=== PATIENT | female | born 1985 | race Caucasian/White ===

== ENCOUNTER 2016-09-03 19:22 | Emergency (ER) | payer MEDICAID ==
[2016-09-03] MEDS ORDERED: KETOROLAC 60 MG/2 ML VIAL IM STA (22:22)
[2016-09-03] MEDS ORDERED: KETOROLAC 60 MG/2 ML VIAL ONE (22:33)
== END 2016-09-04 00:30 | disposition left against medical advice (07) ==
DX: R10.2 Pelvic and perineal pain (principal); E28.2 Polycystic ovarian syndrome; J45.909 Unspecified asthma, uncomplicated; K21.9 Gastro-esophageal reflux disease without esophagitis; Z87.11 Personal history of peptic ulcer disease; F17.200 Nicotine dependence, unspecified, uncomplicated

== ENCOUNTER 2016-10-10 14:50 | Emergency (ER) | payer MEDICAID ==
[2016-10-10 16:53] LABS: BILIRUBIN,URINE NEGATIVE (NEGATIVE)
[2016-10-10 16:56] LABS: HCG UR QUAL NEGATIVE; UA CHARGE (STRIP ONLY) YES; UR CULTURE IF IND NOT INDICATED
--- NOTE | 2016-10-10 17:29 | ED Physician Documentation ---
PD HPI ABD PAIN - Stated complaint Stated Complaint: STOMACH PX - Chief complaint Chief Complaint: Abd Pain - History obtained from History obtained from: Patient - History of Present Illness Timing - onset: How many days ago (5 days of upper abd pain similar to prior gastritis. Has been taking prilosec snf. Resumed sucralfate couple days ago. Having pain with eating and has had some vomiting but no blood.) Timing - duration: Days (5) Timing - details: Gradual onset, Still present (worsening) Quality: Aching, Sharp, Pain Location: Epigastric Radiation: No: Chest, Left flank, Right flank Improved by: No: Eating, Meds Worsened by: Eating Associated symptoms: Fever, Nausea, Vomiting, Diarrhea (loose stools but more chronic issue with question of colitis; pt reportedly getting eval again by GI for possible scope.) Similar symptoms before: Diagnosis (gastritis, IBS, colitis) Review of Systems Constitutional: reports: Fever (subjectively for 5 days). denies: Chills Nose: denies: Rhinorrhea / runny nose, Congestion Throat: denies: Sore throat Cardiac: denies: Chest pain / pressure, Palpitations Respiratory: denies: Dyspnea, Cough, Wheezing GI: reports: Abdominal Pain (upper abd), Nausea, Vomiting, Diarrhea. denies: Constipation, Hematemesis, Bloody / black stool : denies: Dysuria, Frequency Skin: denies: Rash, Lesions Musculoskeletal: denies: Neck pain, Back pain Neurologic: reports: Generalized weakness, Near syncope (she says she felt lightheaded getting up today). 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, Other : None HEENT: None Psych: Depression Musculoskeletal: None Derm: Other - Past Surgical History Past Surgical History: Yes General: Cholecystectomy HEENT: Tonsil/Adenoidectomy - Present Medications Home Medications: Ambulatory Orders Medication Instructions Recorded Confirmed Buprenorphine HCl/Naloxone HCl 1 film TOP DAILY 03/24/15 09/03/16 [Suboxone 2 mg-0.5 mg Sl Film] Escitalopram Oxalate [Lexapro] 20 mg PO DAILY 11/23/15 09/03/16 Promethazine [Phenergan] 25 - 50 mg PO Q6H PRN #15 tab 03/20/16 09/03/16 Ondansetron [Ondansetron Odt] 4 mg PO DAILY 09/03/16 09/03/16 Dicyclomine [Bentyl] 20 mg PO QID PRN #20 capsule 10/10/16 Loperamide [Imodium] 2 mg PO QID PRN #20 capsule 10/10/16 Ondansetron Odt [Zofran] 4 mg TL Q6H PRN #15 tablet 10/10/16 Pantoprazole [Protonix] 40 mg PO DAILY #30 tablet 10/10/16 Sucralfate [Carafate] 1 gm PO QID 10/11/16 10/11/16 - Allergies Allergies/Adverse Reactions: Allergies Allergy/AdvReac Type Severity Reaction Status Date / Time morphine AdvReac Emesis Verified 10/11/16 07:27 Sulfa (Sulfonamide AdvReac Respiratory Verified 10/11/16 07:27 Antibiotics) - Social History Does the pt smoke?: Yes Smoking Status: Current every day smoker Does the pt drink ETOH?: Yes Does the pt have substance abuse?: Yes - Immunizations Immunizations are current?: Yes - POLST Patient has POLST: No PD ED PE NORMAL - Vitals Vital signs reviewed: Yes - General General: Alert and oriented X 3, Well developed/nourished, Other (seems uncomfortable. Not shakiness.) - HEENT HEENT: PERRL (nonicteric), Ears normal, Pharynx benign - Neck Neck: Supple, no meningeal sign, No adenopathy - Cardiac Cardiac: RRR (tachycardic), No murmur - Respiratory Respiratory: Clear bilaterally - Abdomen Abdomen: Normal bowel sounds, Soft, Non distended, No organomegaly, Other ( epigastric tender with some loca guarding, mild percussion but no rebound tenderness. ) - Female Female : Deferred - Rectal Rectal: Deferred - Back Back: No CVA TTP - Derm Derm: Normal color, Warm and dry - Extremities Extremities: No deformity, No tenderness to palpate, Normal ROM s pain, No edema , No calf tenderness / cord - Neuro Neuro: Alert and oriented X 3, No motor deficit, Normal speech - Psych Psych: Normal mood, Normal affect Results - Vitals Vitals: Vital Signs - 24 hr 05/26/17 05/26/17 05/26/17 15:09 18:33 19:27 Temperature 36.7 C 36.8 C Heart Rate 106 H 88 Respiratory 15 18 18 Rate Blood Pressure 120/75 153/80 H O2 Saturation 100 95 10/10/16 10/10/16 20:24 22:08 Temperature 36.5 C Heart Rate 67 61 Respiratory 16 12 Rate Blood Pressure 140/77 H 121/71 O2 Saturation 97 100 Oxygen O2 Source Room air - Labs Labs: Laboratory Tests 10/10/16 10/10/16 10/10/16 16:45 16:45 18:15 WBC 11.6 H RBC 4.95 Hgb 13.2 Hct 40.6 MCV 82.0 MCH 26.7 L MCHC 32.6 RDW 13.5 Plt Count 238 MPV 8.5 Neut # 7.0 H Lymph # 3.7 H [place] # 0.6 Eos # 0.2 Baso # 0.1 Absolute Nucleated RBC 0.00 Nucleated RBCs 0.0 Sodium Potassium Chloride Carbon Dioxide Anion Gap BUN Creatinine Estimated GFR (MDRD) Glucose Calcium Magnesium Total Bilirubin AST ALT Alkaline Phosphatase Total Protein Albumin Globulin Albumin/Globulin Ratio Lipase Urine Color YELLOW Urine Clarity CLEAR Urine pH 6.0 Ur Specific [place] <=1.005 <=1.005 Urine Protein NEGATIVE Urine Glucose (UA) NEGATIVE Urine Ketones NEGATIVE Urine Occult Blood NEGATIVE Urine Nitrite NEGATIVE Urine Bilirubin NEGATIVE Urine Urobilinogen 0.2 (NORMAL) Ur Leukocyte Esterase NEGATIVE Ur Microscopic Review NOT INDICATED Urine Culture Comments NOT INDICATED Urine HCG, Qual NEGATIVE H. pylori IgG Antibody 10/10/16 10/10/16 18:15 18:15 WBC RBC Hgb Hct MCV MCH MCHC RDW Plt Count MPV Neut # Lymph # [place] # Eos # Baso # Absolute Nucleated RBC Nucleated RBCs Sodium 138 Potassium 3.5 Chloride 104 Carbon Dioxide 24 Anion Gap 10.0 BUN 9 Creatinine 0.7 Estimated GFR (MDRD) 98 Glucose 98 Calcium 9.4 Magnesium 1.9 Total Bilirubin 0.3 AST 23 ALT 23 Alkaline Phosphatase 82 Total Protein 7.6 Albumin 4.4 Globulin 3.2 Albumin/Globulin Ratio 1.4 Lipase 23 Urine Color Urine Clarity Urine pH Ur Specific [place] Urine Protein Urine Glucose (UA) Urine Ketones Urine Occult Blood Urine Nitrite Urine Bilirubin Urine Urobilinogen Ur Leukocyte Esterase Ur Microscopic Review Urine Culture Comments Urine HCG, Qual H. pylori IgG Antibody Negative PD MEDICAL DECISION MAKING - ED course Complexity details: reviewed old records (history of similar symptoms, and is on suboxone but says pain meds help as well. Presume she is taking the suboxone as she says, but would not expect pain meds to be as effective. She is interested in GI cocktail and antiemetics, so seems motivated for symptom relief and not just pain meds per se. Certainly issue between treating symptoms at face value and prior question of drug seeking. Will give some meds and certainly focus on GI meds too.), re-evaluated patient (improved symptoms with GI cocktail and less nauseated, able to take PO. IV infiniltrated after part of liter but she is feeling better. ), considered differential, d/w patient Departure - Departure Disposition: 01 Home, Self Care Clinical Impression: Epigastric abdominal pain, Gastritis, Vomiting Condition: Stable Record reviewed to determine appropriate education?: Yes Instructions: ED PUD Follow-Up: Genaro Meza MD [Primary Care Provider] - Prescriptions: Dicyclomine [Bentyl] 20 mg PO QID PRN #20 capsule PRN Reason: Spasms Loperamide [Imodium] 2 mg PO QID PRN #20 capsule PRN Reason: Diarrhea Pantoprazole [Protonix] 40 mg PO DAILY #30 tablet Ondansetron Odt [Zofran] 4 mg TL Q6H PRN #15 tablet PRN Reason: Nausea / Vomiting Comments: Small frequent fluids and bland food initially. Stop the Prilosec and change to Pantoprazole to see if works better now. Continue the Sucralfate 4 times daily for a week. Other usual medications that you take, continue. Add Imodium for diarrhea as needed and can add Dicyclomine for cramps as needed. Follow up PMD next week as planned. Discharge Date/Time: 10/10/16 22:08
[2016-10-10] MEDS ORDERED: ONDANSETRON 4 MG/2 ML VIAL IVP STA (17:56)
[2016-10-10] MEDS ORDERED: HYDROmorphone 1 MG/ML SYRINGE IVP STA ×2 (17:56→19:14)
[2016-10-10] MEDS ORDERED: FAMOTIDINE 20 MG/50 ML 50 ML IV ONE ×2 (17:56→18:04)
[2016-10-10] MEDS ORDERED: SODIUM CHLORIDE 0.9% 1,000 ML IV ONE (17:56)
[2016-10-10] MEDS ORDERED: LIDOCAINE VISCOUS 2% 15 ML UDC MM STA (17:58)
[2016-10-10] MEDS ORDERED: MAG HYDROX/AL HYDROX/SIMETH 30 ML UDC PO STA (17:58)
[2016-10-10] MEDS ORDERED: LIDOCAINE VISCOUS 2% 15 ML UDC MM ONE (18:03)
[2016-10-10] MEDS ORDERED: MAG HYDROX/AL HYDROX/SIMETH 30 ML UDC ONE (18:03)
[2016-10-10] MEDS ORDERED: HYDROmorphone 1 MG/ML SYRINGE ONE ×3 (18:04→21:12)
[2016-10-10] MEDS ORDERED: ONDANSETRON 4 MG/2 ML VIAL ONE (18:04)
[2016-10-10 18:23] LABS: BASOPHILS # (AUTO) 0.1 10^3/uL (0.0-0.1); BASOPHILS % (AUTO) 0.8 %; EOSINOPHILS # (AUTO) 0.2 10^3/uL (0.0-0.7); EOSINOPHILS % (AUTO) 1.4 %; HCT - HEMATOCRIT 40.6 % (37.0-47.0); HGB - HEMOGLOBIN 13.2 g/dL (12.0-16.0); LYMPHOCYTES # (AUTO) 3.7 10^3/uL (1.5-3.5); LYMPHOCYTES % (AUTO) 32.2 %; MEAN CORPUSCULAR HEMOGLOBIN 26.7 pg (27.0-31.0); MEAN CORPUSCULAR HGB CONC 32.6 g/dL (32.0-36.0); MEAN PLATELET VOLUME 8.5 fL (7.9-10.8); MONOCYTES # (AUTO) 0.6 10^3/uL (0.0-1.0); MONOCYTES % (AUTO) 5.2 %; NEUTROPHILS % (AUTO) 60.4 %; RED BLOOD COUNT 4.95 10^6/uL (4.20-5.40); RED CELL DISTRIBUTION WIDTH 13.5 % (12.0-15.0); UNCORRECTED WHITE BLOOD COUNT 11.6 x10^3/uL; WHITE BLOOD COUNT 11.6 x10^3/uL (4.8-10.8)
[2016-10-10 18:37] LABS: ALBUMIN/GLOBULIN RATIO 1.4 (1.0-2.2); BILIRUBIN,TOTAL 0.3 mg/dL (0.2-1.0); CALCIUM 9.4 mg/dL (8.5-10.3); CREATININE 0.7 mg/dL (0.4-1.0); MAGNESIUM 1.9 mg/dL (1.7-2.8); POTASSIUM 3.5 mmol/L (3.5-5.0); TOTAL PROTEIN 7.6 g/dL (6.7-8.2)
[2016-10-10 18:43] LABS: H. PYLORI IGG ANTIBODY Negative (Negative); HPYLORI NEG QC Negative (Negative); HPYLORI POS QC POSITIVE (Positive)
[2016-10-10] MEDS ORDERED: PROMETHAZINE INJ 12.5 MG in SODIUM CHLORIDE 0.9% 50 ML IV STA (20:00)
[2016-10-10] MEDS ORDERED: PROMETHAZINE 25 MG/1 ML VIAL ONE (20:08)
[2016-10-10] MEDS ORDERED: PANTOPRAZOLE 40 MG TABLET PO STA (21:06)
[2016-10-10] MEDS ORDERED: HYDROmorphone 1 MG/ML SYRINGE IM STA (21:06)
[2016-10-10] MEDS ORDERED: PANTOPRAZOLE 40 MG TABLET ONE (21:12)
[2016-10-10 22:11] VITALS: BP 121/71
== END 2016-10-10 22:08 | disposition home or self-care (01) ==
LOC: ED 14:50
DX: K29.70 Gastritis, unspecified, without bleeding (principal); K21.9 Gastro-esophageal reflux disease without esophagitis; F32.9 Major depressive disorder, single episode, unspecified; Z88.2 Allergy status to sulfonamides; Z88.5 Allergy status to narcotic agent; F17.200 Nicotine dependence, unspecified, uncomplicated
CPT/HCPCS: 36415; 80053; 81003; 81025; 83690; 83735; 85025; 87339; 96365; 96367; 96372; 96375; 96376; 99284; A9270; J1170; 81001; 87086

== ENCOUNTER 2016-10-11 07:18 | Inpatient (IN) | payer MEDICAID ==
[2016-10-11] MEDS ORDERED: HYDROmorphone 1 MG/ML SYRINGE IVP STA ×4 (08:19→16:59)
[2016-10-11] MEDS ORDERED: ONDANSETRON 4 MG/2 ML VIAL IVP STA (08:19)
[2016-10-11] MEDS ORDERED: HYDROmorphone 1 MG/ML SYRINGE ONE ×5 (08:23→17:12)
[2016-10-11] MEDS ORDERED: ONDANSETRON 4 MG/2 ML VIAL ONE (08:23)
[2016-10-11] MEDS ORDERED: PROMETHAZINE INJ 25 MG in SODIUM CHLORIDE 0.9% 50 ML IV STA ×2 (08:56→13:07)
[2016-10-11] MEDS ORDERED: LORazepam 2 MG/ML SYRINGE IVP STA (08:57)
[2016-10-11] MEDS ORDERED: SODIUM CHLORIDE 0.9% 1,000 ML IV ONE ×3 (08:57→13:11)
[2016-10-11] MEDS ORDERED: PROMETHAZINE 25 MG/1 ML VIAL ONE ×2 (09:01→13:11)
[2016-10-11] MEDS ORDERED: LORazepam 2 MG/ML SYRINGE ONE (09:02)
[2016-10-11 09:21] LABS: BILIRUBIN,URINE NEGATIVE (NEGATIVE)
[2016-10-11 09:22] LABS: HCG UR QUAL NEGATIVE; UA CHARGE (STRIP ONLY) YES; UR CULTURE IF IND NOT INDICATED
[2016-10-11] MEDS ORDERED: SUCRALFATE 1 GM/10 ML UDC PO STA (10:35)
[2016-10-11] MEDS ORDERED: LIDOCAINE VISCOUS 2% 15 ML UDC MM STA (10:36)
[2016-10-11] MEDS ORDERED: MAG HYDROX/AL HYDROX/SIMETH 30 ML UDC PO STA (10:36)
[2016-10-11] MEDS ORDERED: LIDOCAINE VISCOUS 2% 15 ML UDC MM ONE (10:50)
[2016-10-11] MEDS ORDERED: MAG HYDROX/AL HYDROX/SIMETH 30 ML UDC ONE (10:50)
[2016-10-11] MEDS ORDERED: SUCRALFATE 1 GM/10 ML UDC ONE (10:50)
--- NOTE | 2016-10-11 13:07 | ED Physician Documentation ---
PD HPI ABD PAIN - Stated complaint Stated Complaint: NAUSEA,VOMITING,DIARRHEA - Chief complaint Chief Complaint: Abd Pain - History obtained from History obtained from: Patient - History of Present Illness Timing - onset: How many days ago (4) Timing - duration: Days (4) Timing - details: Gradual onset, Still present Quality: Cramping, Sharp, Pain Location: All over / everywhere, Epigastric Improved by: Vomiting Worsened by: Position, Palpation Associated symptoms: Nausea, Vomiting, Diarrhea, Loss of appetite Similar symptoms before: Diagnosis (IBS, ulcerative colitis, gallbladder disease ) Recently seen: Emergency Dept (Seen and treated here last night.) - Additional information Additional information: 30 y/o female with a history of intermittent abdominal pain and vomiting has has prior similar episodes and over the past 4 days she has developed nausea, billious vomiting and epigastric and suprapubic pain. She was in the ED yesterday getting fluid, pain medication and antiemetic and she did respond to a GI cocktail and improved and was able to go home and sleep. She awoke this morning with nausea vomiting and abdominal pain. Review of Systems Constitutional: reports: Fatigue, Sweats. denies: Fever Eyes: denies: Decreased vision Ears: denies: Ear pain Nose: denies: Congestion Throat: denies: Sore throat Cardiac: denies: Chest pain / pressure, Palpitations Respiratory: denies: Dyspnea, Cough GI: reports: Abdominal Pain, Nausea, Vomiting, Diarrhea : denies: Dysuria, Frequency Skin: denies: Rash Musculoskeletal: denies: Neck pain, Back pain Neurologic: reports: Generalized weakness. 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, Other : None HEENT: None Psych: Depression Musculoskeletal: None Derm: Other - Past Surgical History Past Surgical History: Yes General: Cholecystectomy HEENT: Tonsil/Adenoidectomy - Present Medications Home Medications: Ambulatory Orders Medication Instructions Recorded Confirmed Buprenorphine HCl/Naloxone HCl 1 film TOP DAILY 03/24/15 10/11/16 [Suboxone 2 mg-0.5 mg Sl Film] Escitalopram Oxalate [Lexapro] 20 mg PO DAILY 11/23/15 10/11/16 Promethazine [Phenergan] 25 - 50 mg PO Q6H PRN #15 tab 03/20/16 10/11/16 Ondansetron [Ondansetron Odt] 4 mg PO DAILY 09/03/16 10/11/16 Dicyclomine [Bentyl] 20 mg PO QID PRN #20 capsule 10/10/16 10/11/16 Loperamide [Imodium] 2 mg PO QID PRN #20 capsule 10/10/16 10/11/16 Ondansetron Odt [Zofran] 4 mg TL Q6H PRN #15 tablet 10/10/16 10/11/16 Pantoprazole [Protonix] 40 mg PO DAILY #30 tablet 10/10/16 10/11/16 Sucralfate [Carafate] 1 gm PO QID 10/11/16 10/11/16 - Allergies Allergies/Adverse Reactions: Allergies Allergy/AdvReac Type Severity Reaction Status Date / Time morphine AdvReac Emesis Verified 10/11/16 07:27 Sulfa (Sulfonamide AdvReac Respiratory Verified 10/11/16 07:27 Antibiotics) - Social History Does the pt smoke?: Yes Smoking Status: Current every day smoker Does the pt drink ETOH?: Yes Does the pt have substance abuse?: Yes - Immunizations Immunizations are current?: Yes - POLST Patient has POLST: No PD ED PE NORMAL - Vitals Vital signs reviewed: Yes (hypertensive) - General General: Well developed/nourished, Other (diaphoretic patient appears uncomfortable with 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 ) - HEENT HEENT: Atraumatic, PERRL, EOMI, Other (dry mucous membranes ) - Neck Neck: Supple, no meningeal sign, No bony TTP - Cardiac Cardiac: RRR, No murmur - Respiratory Respiratory: No respiratory distress, Clear bilaterally - Abdomen Abdomen: Soft, Other (epigastric tenderness is mild ) - Back Back: No CVA TTP, No spinal TTP - Derm Derm: Normal color, Warm and dry, No rash - Extremities Extremities: No deformity, No edema - Neuro Neuro: Alert and oriented X 3, No motor deficit, No sensory deficit, Normal speech - Psych Psych: Normal mood, Normal affect Results - Vitals Vitals: Vital Signs - 24 hr 10/11/16 10/11/16 10/11/16 07:22 08:47 10:12 Temperature 36.7 C 35.3 C L Heart Rate 89 81 82 Respiratory 16 16 16 Rate Blood Pressure 140/91 H 154/99 H 148/83 H O2 Saturation 97 100 100 10/11/16 10/11/16 10/11/16 12:02 13:31 14:03 Temperature 36.9 C Heart Rate 79 72 82 Respiratory 18 18 16 Rate Blood Pressure 151/86 H 129/77 144/82 H O2 Saturation 99 100 100 10/11/16 16:06 Temperature Heart Rate 71 Respiratory 71 H Rate Blood Pressure 146/61 H O2 Saturation 100 Oxygen O2 Source Room air - Labs Labs: Microbiology 10/11/16 08:35 Campylobacter Antigen Assay - Final Stool 10/11/16 08:35 Clostridium difficile (PCR) - Final Stool Laboratory Tests 10/11/16 10/11/16 09:05 15:26 Sodium 138 Potassium 3.9 Chloride 106 Carbon Dioxide 21 Anion Gap 11.0 BUN 9 Creatinine 0.5 Estimated GFR (MDRD) 145 Glucose 130 H Calcium 8.9 Total Bilirubin 0.4 AST 26 ALT 26 Alkaline Phosphatase 81 Total Protein 7.8 Albumin 4.3 Globulin 3.5 Albumin/Globulin Ratio 1.2 Lipase 22 Urine Color YELLOW Urine Clarity CLEAR Urine pH 7.0 Ur Specific [place] 1.015 Urine Protein NEGATIVE Urine Glucose (UA) NEGATIVE Urine Ketones NEGATIVE Urine Occult Blood NEGATIVE Urine Nitrite NEGATIVE Urine Bilirubin NEGATIVE Urine Urobilinogen 0.2 (NORMAL) Ur Leukocyte Esterase NEGATIVE Ur Microscopic Review NOT INDICATED Urine Culture Comments NOT INDICATED Urine HCG, Qual NEGATIVE Procedures - IVC sono (time) 0750 Bedside IVC sono: IVC measures (cm) (0.82), IVC collapsed c insp (cm) (complete) , Significant dehydration PD MEDICAL DECISION MAKING - ED course Complexity details: reviewed old records, reviewed results, re-evaluated patient , considered differential, d/w patient ED course: 30 y/o female with billious vomiting and epigastric pain is given doses of dialudid and zofran and phenrgan without resolution of her symptoms. She is significantly dehydrated and she is administered 2 liters of saline as well. Despite multiple medications and time the patient continues to have billious vomiting and the hospital team is consulted and graciously agrees to care for the patient in the hospital and have made recommendations about treatment to include anti-inflammatory steroid use. Departure - Departure Disposition: 66 [facility] DC/Xfer Clinical Impression: Intractable vomiting with nausea Qualifiers: Vomiting type: cyclical vomiting Qualified Code(s): G43.A1 - Cyclical vomiting , intractable
[2016-10-11] MEDS ORDERED: SODIUM CHLORIDE 0.9% 50 ML IV ONE (13:11)
[2016-10-11 15:48] LABS: ALBUMIN/GLOBULIN RATIO 1.2 (1.0-2.2); BILIRUBIN,TOTAL 0.4 mg/dL (0.2-1.0); CALCIUM 8.9 mg/dL (8.5-10.3); CREATININE 0.5 mg/dL (0.4-1.0); POTASSIUM 3.9 mmol/L (3.5-5.0); TOTAL PROTEIN 7.8 g/dL (6.7-8.2)
[2016-10-11] MEDS ORDERED: methylPREDNISolone SUCCINATE 125 MG/2 ML VIAL IVP STA (16:32)
[2016-10-11] MEDS ORDERED: methylPREDNISolone SUCCINATE 125 MG/2 ML VIAL IVP ONE (16:45)
[2016-10-11] MEDS ORDERED: SODIUM CHLORIDE FLUSH 0.9% 10 ML SYRINGE IVP PRN (16:56)
[2016-10-11] MEDS ORDERED: KETOROLAC 30 MG/ML VIAL IVP SCH (17:11)
[2016-10-11 17:39] LABS: MAGNESIUM 1.6 mg/dL (1.7-2.8)
[2016-10-11] MEDS: GABAPENTIN 100 MG CAPSULE PO SCH ×2 (17:50→21:17)
[2016-10-11] MEDS: SUCRALFATE 1 GM/10 ML UDC PO SCH ×2 (17:50→21:18)
[2016-10-11] MEDS: SODIUM CHLORIDE 0.9% 1,000 ML IV SCH (17:56)
[2016-10-11] MEDS ORDERED: MAGNESIUM SULFATE 2 GRAM 50 ML IV SCH (18:11)
[2016-10-11] MEDS ORDERED: CYANOCOBALAMIN 1,000 MCG/ML VIAL IM SCH (18:12)
[2016-10-11] MEDS: INSULIN REGULAR HUMAN 100 UNIT/1 ML 10 ML MDV SUBQ SCH (18:18)
[2016-10-11] MEDS ORDERED: ALPRAZolam 0.25 MG TABLET PO PRN (18:28)
[2016-10-11] MEDS ORDERED: PROMETHAZINE INJ 25 MG in SODIUM CHLORIDE 0.9% 50 ML IV SCH (18:31)
[2016-10-11 18:41] LABS: HCT - HEMATOCRIT 45.7 % (37.0-47.0); HGB - HEMOGLOBIN 14.8 g/dL (12.0-16.0); MEAN CORPUSCULAR HEMOGLOBIN 26.9 pg (27.0-31.0); MEAN CORPUSCULAR VOLUME 83.1 fL (81.0-99.0); RED BLOOD COUNT 5.51 10^6/uL (4.20-5.40); WHITE BLOOD COUNT 14.8 x10^3/uL (4.8-10.8)
[2016-10-11 18:42] LABS: BASOPHILS % (AUTO) 0.3 %; EOSINOPHILS % (AUTO) 0.1 %; LYMPHOCYTES % (AUTO) 6.9 %; MEAN CORPUSCULAR HGB CONC 32.4 g/dL (32.0-36.0); MEAN PLATELET VOLUME 8.9 fL (7.9-10.8); MONOCYTES % (AUTO) 1.9 %; NEUTROPHILS % (AUTO) 90.8 %
[2016-10-11 18:44] LABS: BAND NEUTROPHILS % (MANUAL) 0 %
[2016-10-11] MEDS ORDERED: ALPRAZolam 0.25 MG TABLET PO STA (18:44)
[2016-10-11 19:03] LABS: HEMOGLOBIN A1C 0.66 g/dL
[2016-10-11] MEDS: CHOLECALCIFEROL 5,000 UNIT CAPSULE PO SCH (19:20)
[2016-10-11] MEDS: traMADol 50 MG TABLET PO PRN (19:20)
--- NOTE | 2016-10-11 19:32 | Ultrasound Preliminary Report ---
Exam: US Abdomen Complete IMPRESSION: 1. Diffusely echogenic liver, suggestive of hepatic steatosis. 2. Status post cholecystectomy. [facility] SITE ID: [id number]
--- NOTE | 2016-10-11 19:35 | Ultrasound Report ---
EXAM: ABDOMEN ULTRASOUND EXAM DATE: 10/11/2016 06:19 PM. CLINICAL HISTORY: Abdominal pain, nausea, vomiting, diarrhea COMPARISON: CT 09/23/2015. TECHNIQUE: Real-time scanning was performed with static images obtained. FINDINGS: Liver: Diffusely increased in echogenicity, suggestive of hepatic steatosis. 17 cm. Main portal vein flow: Hepatopetal. Gallbladder: Status post cholecystectomy Biliary System: Common bile duct measures 4 mm. No intrahepatic or extrahepatic ductal dilatation. Pancreas: Not seen due to bowel gas Kidneys: Right: 11.8 cm longitudinally. Normal. No contour-deforming mass, stones, or hydronephrosis. Left: 11.2 cm longitudinally. Normal. No contour-deforming mass, stones, or hydronephrosis. Spleen: 11.0 x 3.4 x 10.6 cm. Normal in size and echotexture. Aorta and Inferior Vena Cava: Unremarkable. IMPRESSION: 1. Diffusely echogenic liver, suggestive of hepatic steatosis. 2. Status post cholecystectomy. [facility] Referring Provider Line: [phone] SITE ID: [id number]
[2016-10-11 19:38] LABS: LYMPHOCYTES % (MANUAL) 7 %; NEUTROPHILS % (MANUAL) 91 %; NP AUTO DIFFERENTIAL? YES; NP MAN DIFFERENTIAL? NO; PLATELET ESTIMATE, MANUAL NORMAL (130-450,000) (NORMAL); PLATELET MORPHOLOGY NORMAL APPEARANCE (NORMAL); TOTAL CELLS COUNTED 100
[2016-10-11] MEDS ORDERED: THIAMINE 100 MG/1 ML 2 ML MDV ONE (19:38)
--- NOTE | 2016-10-11 20:01 | HISTORY & PHYSICAL EXAMINATION ---
DATE OF ADMISSION: 10/11/2016 CHIEF COMPLAINT: Intractable vomiting and abdominal pain and spasm. PRIMARY CARE PROVIDER: Cally Bentley, GILMAR. PRIMARY CARE PROVIDER: Genaro Meza PCP. HISTORY OF PRESENT ILLNESS: The patient is a 30-year-old obese female who presented to the ED today with a complaint of cyclical vomiting x1 week. She has had similar symptoms before in the past. She states that these were gradual onset and have been ongoing ever since. She states that she normally takes Suboxone to help with narcotic withdrawal along with Carafate and Bentyl, has not been able to pick this medication up so the vomiting has continued. She does use marijuana usually in food rather than smoking it, which she states does help the pain. She is an everyday smoker; however, does not drink. She says the nicotine in the cigarettes does help with her history of ulcerative colitis. Significant medical history includes asthma, migraine headaches, PCOS, GERD, ulcers, ovarian cysts and depression. The patient was evaluated in the ED today, she showed positive for opiates as well as cannabinoids. She admits to having both nausea and vomiting and some mild diarrhea, so a C.dif test was done in the ER, which was also negative. The patient was found to also have an elevated CRP with significant inflammation. She was given a dose of Solu-Medrol 125 mg while in the ER. She also received 5 mg of IV Dilaudid which she states was barely helping her pain. At admission, she states her pain was still 9 out of 10 and she was still experiencing significant vomiting. She had been given Phenergan 25 mg IV while in the ER. The patient will be admitted for intractable nausea, vomiting and pain. Additionally, a magnesium level was found to be 1.6. She was given 2 grams of IV magnesium sulfate. ALLERGIES 1. MORPHINE. 2. SULFA. HOME MEDICATIONS 1. Lexapro 20 mg. 2. Suboxone 2 mg film. 3. Carafate 1 gram p.o. q.i.d. PAST MEDICAL HISTORY: Includes nicotine abuse, cannabinoid usage, asthma, headache, migraine, PCOS, GERD, ulcerative colitis, depression, irregular menstrual cycles. PAST SURGICAL HISTORY: Cholecystectomy, tonsillectomy, adenoidectomy. PAST FAMILY HISTORY: The patient states that both her parents are obese. She does have a mother with metabolic syndrome, also chronic pain issues and diabetes. She states that one of her other parents also has a history of fibromyalgia. PAST SOCIAL HISTORY: The patient is an every day cigarette smoker. She does not drink alcohol. She does use substances, marijuana, which she states that she uses food products, not smoking. REVIEW OF SYSTEMS: The 10 systems have been reviewed and is negative with the exception as discussed in HPI prior. She is negative for chest pain or shortness of breath. She is positive for fatigue, weakness, vomiting, intractable fever and malaise. She denies hematuria, dysuria and black tarry stools. PHYSICAL EXAMINATION CONSTITUTIONAL: The patient is an alert, obese female in moderate distress. EYES: Pupils equal, round and react to light and accommodation. Conjunctivae and sclerae are nonicteric, not injected. ENT: Nares are patent. No nasal discharge. Oropharynx - no masses, exudates or lesions. Mucous membranes are moist. NECK: Neck was supple. No thyromegaly noted. CARDIOVASCULAR: S1, S2 noted. No gallops, murmurs or rubs. Normal PMI. No JVD. RESPIRATORY: Breath sounds are diminished in the bases, otherwise no retractions , nasal flaring, or increased work of breathing. GASTROINTESTINAL: Abdomen was obese, diffuse tenderness but otherwise no guarding or rebound. GENITOURINARY: No CVA tenderness. No masses palpated. SKIN: Warm and dry, intact, noted significant acne to both cheeks. NEUROLOGICAL: She was alert. Cranial nerves 2-12 grossly intact. Sensory was intact. MUSCULOSKELETAL/EXTREMITIES: The patient has full range of motion with upper and lower extremities. No cyanosis. Pulses are palpable. PSYCHIATRIC: The patient was tearful, otherwise normal affect. No suicidal ideation. HEMATOLOGIC: No active bleeding. The patient was hemodynamically stable. LYMPHATICS: No cervical, axillary, supraclavicular lymphadenopathy is noted. LABORATORY AND DIAGNOSTIC DATA: I personally reviewed all laboratory and diagnostic data in the medical records and the results are as follows. LABORATORY: Sodium 138, potassium 3.9, chloride 106, carbon dioxide 21, BUN 9, creatinine 0.5, glucose 130, magnesium 1.6. C-reactive protein 1.4. TSH 1.26. Urine was positive for opiates and cannabinoids. CBC is pending. DIAGNOSTICS: I personally reviewed the diagnostic data in the medical records and reviewed this with the ER provider. 1. Chest x-ray with no acute process. No infiltrates noted. 2. Ultrasound of the upper abdomen which is pending at this time. ASSESSMENT AND PLAN 1. Acute abdominal pain with intractable vomiting, possible cyclical vomiting syndrome secondary to cannabinoid usage. PLAN: The patient was admitted inpatient with IV fluids, Phenergan and IV and pain management. The patient was also given Zofran while in the ER, which we will continue. The patient states that she uses marijuana on a daily basis and has not had symptoms like this in several weeks. She does take Suboxone and says she has had physical dependence on pain medication in the past. She does have a history of ulcerative colitis which is what the pain medication was prescribed for. We will continue to monitor CBC and CMP, monitor electrolytes and kidney function. 2. Substance abuse, uncomplicated with dependence on THC cannabinoids. PLAN: Continue to provide counseling for cessation of marijuana usage. Gabapentin for marajuana withdrawal 3. Obesity with body mass index greater than 30 with excessive caloric intake. PLAN: Nutrition counseling is recommended and encourage ambulation and exercise. 4. Leukocytosis, acute secondary to Chronic ulcerative colitis with acute gastroparesis and inflammation with elevated CRP PLAN: Cipro and Flagyl IV and Continue on Protonix, Zofran, Bentyl. Continue to monitor white count and pain management with Toradol and Tramadol. 4. Nicotine dependence, cigarettes, uncomplicated. PLAN: To provide nicotine patch. The patient does have nicotine gum, which she would like to use which is okay. We will mortgage loan counselor as far as sensation for smoking. 5. Chronic anxiety disorder with depression. PLAN: To continue Lexapro and monitor mental health behavior. Xanax 0.5 mg PO BID and ativan PRn 6. Gastroesophageal reflux disease. PLAN: To continue Protonix and probiotic. 7. DVT prophylaxis with SCDs and Lovenox. 8. Low serum level of magnesium with other electrolyte imbalances PLAN: replace magnesium with magnesium sulfate IV and repeat levels with morning lab draw. RISK ASSESSMENT/DISPOSITION: The patient is high risk for worsening comorbidities. She will require IV medication with high risk for toxicity, additional diagnostics and possible additional consults. Toe touch to bedside. Time spent with the patient was 50 minutes for education planning and assessment. The patient will require greater than 2 midnights due to high risk for comorbidities and IV medication with toxicity potential. JOB #: [id number] EXT JOB #:[id number] MTDMeme
[2016-10-11] MEDS ORDERED: GABAPENTIN 300 MG CAPSULE PO SCH (21:00)
[2016-10-11] MEDS: MULTIVITAMIN 10 ML, THIAMINE INJ 100 MG, FOLIC ACID INJ 1 MG in SODIUM CHLORIDE 0.9% 1,... IV SCH (21:16)
[2016-10-11] MEDS: SODIUM CHLORIDE FLUSH 0.9% 10 ML SYRINGE IVP SCH (21:18)
[2016-10-11] MEDS: ALPRAZolam 0.25 MG TABLET PO SCH (21:18)
[2016-10-11] MEDS ORDERED: diphenhydrAMINE INJ 50 MG/ML VIAL IVP SCH (22:00)
[2016-10-11] MEDS: DICYCLOMINE 10 MG CAPSULE PO PRN (22:40)
[2016-10-11] MEDS: KETOROLAC 30 MG/ML VIAL IVP PRN (22:40)
[2016-10-12] MEDS: INSULIN REGULAR HUMAN 100 UNIT/1 ML 10 ML MDV SUBQ SCH ×4 (01:00→16:59)
[2016-10-12] MEDS: traMADol 50 MG TABLET PO PRN ×4 (01:05→20:03)
[2016-10-12] MEDS: ONDANSETRON ODT 4 MG TABLET TL PRN (02:27)
[2016-10-12] MEDS: cloNIDine 0.1 MG TABLET PO SCH ×4 (03:02→21:37)
[2016-10-12] MEDS: PROMETHAZINE INJ 12.5 MG in SODIUM CHLORIDE 0.9% 50 ML IV PRN ×3 (04:06→22:45)
[2016-10-12] MEDS: KETOROLAC 30 MG/ML VIAL IVP PRN ×4 (04:57→22:44)
[2016-10-12] MEDS: DICYCLOMINE 10 MG CAPSULE PO PRN ×2 (04:58→17:02)
[2016-10-12] MEDS: SODIUM CHLORIDE 0.9% 1,000 ML IV SCH ×3 (05:38→21:54)
[2016-10-12] MEDS: GABAPENTIN 100 MG CAPSULE PO SCH (05:47)
[2016-10-12] MEDS: SODIUM CHLORIDE FLUSH 0.9% 10 ML SYRINGE IVP SCH ×3 (05:48→22:45)
[2016-10-12] MEDS ORDERED: IOPAMIDOL-300 100 ML VIAL IVP ONE (05:51)
--- NOTE | 2016-10-12 06:36 | CT Preliminary Report ---
Exam: CT Abdomen/Pelvis W/ IMPRESSION: 1. Fatty infiltration of the liver. 2. No acute inflammatory or obstructive process seen in the abdomen or pelvis. [facility] SITE ID: [id number]
--- NOTE | 2016-10-12 06:39 | CT Report ---
EXAM: CT ABDOMEN AND PELVIS EXAM DATE: 10/12/2016 06:00 AM. CLINICAL HISTORY: Abdominal pain and vomiting. COMPARISONS: 09/23/2015. TECHNIQUE: Routine helical CT imaging was performed through the abdomen and pelvis. IV contrast: Malu onic. Enteric contrast: No. Reconstructions: Coronal and sagittal. In accordance with CT protocol optimization, one or more of the following dose reduction techniques w ere utilized for this exam: automated exposure control, adjustment of mA and/or KV based on patient s ize, or use of iterative reconstructive technique. FINDINGS: Lung Bases: Unremarkable. Liver: Fatty infiltration. Gallbladder/Bile Ducts: Status post cholecystectomy. Spleen: Normal. Pancreas: Normal. Adrenal Glands: Normal. Kidneys: Normal. No masses or hydronephrosis. Peritoneal Cavity/Bowel: Colonic diverticula without evidence of diverticulitis. No bowel obstruction seen. No free air or free fluid. No lymphadenopathy. Appendix appears normal. Pelvic Organs: Normal. The bladder and visualized pelvic organs are within normal limits. Vasculature: No aneurysms or other significant abnormality. Bones: No significant abnormality. Other: None. IMPRESSION: 1. Fatty infiltration of the liver. 2. No acute inflammatory or obstructive process seen in the abdomen or pelvis. [facility] Referring Provider Line: [phone] SITE ID: [id number]
--- NOTE | 2016-10-12 07:14 | PROVIDER PROGRESS NOTE ---
Assessment/Plan - Problem List (1) Intractable vomiting with nausea Qualifiers: Vomiting type: cyclical vomiting Qualified Code(s): G43.A1 - Cyclical vomiting, intractable Assessment/Plan: ongoing. patient probably has withdrawal from marajuan but also has history of colonic ulceritive colitis. continue with phenergan, compazine, bentyl and zofran. (2) Leukocytosis, unspecified Qualifiers: Leukocytosis type: other Qualified Code(s): D72.828 - Other elevated white blood cell count Assessment/Plan: ongoing. continue to monitor white blood cells and give cipro and flagyk IV for colonic diverticulosis with possible diverticulitis on presentation. CT of abdomen did not show diverticulitis but with patient history, she states she gets sick when her colitis is acting up. Will continue with steroids for inflammation. CRP is elevated. This could still be more of the cyclic vomiting from the marajuana as well. will continue to give gabapentin for marajuana withdrawal. monitor electrolytes (3) Hypokalemia due to loss of potassium Assessment/Plan: acute . continue to give patient IVF and monitor for emesis. Replace potassium orally and monitor electrolytes with daily blood draw (4) Acute narcotic withdrawal Assessment/Plan: ongoing. severe continue with gabapentin for marijuana withdrawal and IVF and banana bag IV for hydration and supplements. patient was given small dose of Dilaudid 0.5mg IV for additional pain. hold suboxone home medication. continue with Ativan or Valium for spasms and agitation. telemetry monitoring (5) Metabolic syndrome Assessment/Plan: ongoing. patient with narcotic and substance abuse with obesity and PCOS. continues with needs for nutrition consult and management of diet and endocrine disorders. Severe gastritis with antiemetics to continue. reduced calorie diet, low fat, no gluten or dairy. (6) Fat induced hyperlipidemia Assessment/Plan: acute. continue to encourage diet with low fat and low calorie. Patient will need counseling with nutrition prior to discharge if acceptable to patient. omega 3 since patient will not take a statin - Current Meds Current Meds: Current Medications Generic Name Dose Route Start Last Admin Trade Name Freq PRN Reason Stop Dose Admin Alprazolam 0.5 mg 10/11/16 21:00 10/11/16 21:18 Xanax PO 0.5 mg BID KATHIE Administration Cholecalciferol 5,000 unit 10/11/16 19:00 10/11/16 19:20 Vitamin D3 PO 5,000 unit DAILYWM KATHIE Administration Clonidine HCl 0.1 mg 10/12/16 03:00 10/12/16 05:47 Catapres PO Not Given TID KATHIE Dicyclomine HCl 20 mg 10/11/16 17:07 10/12/16 04:58 Bentyl PO 20 mg QID PRN Administration Spasms Gabapentin 100 mg 10/11/16 18:00 10/12/16 05:47 Neurontin PO Not Given TID KATHIE Gabapentin 300 mg 10/11/16 21:00 10/11/16 21:17 Neurontin PO 300 mg QPM KATHIE Administration Sodium Chloride 1,000 mls @ 100 mls/hr 10/11/16 17:00 10/12/16 05:38 Normal Saline 0.9% IV Not Given .Q10H KATHIE Multivitamins 10 ml/ Thiamine 1,011.2 mls @ 100 mls/hr 10/11/16 18:41 10/11/16 21:16 HCl 100 mg/ Folic Acid 1 mg/ IV 100 mls/hr Sodium Chloride DAILY KATHIE Administration Promethazine HCl 12.5 mg/ 50.5 mls @ 100 mls/hr 10/12/16 03:42 10/12/16 04:06 Sodium Chloride IV 100 mls/hr Q6H PRN Administration Nausea / Vomiting Insulin Human Regular 1 - 5 unit 10/11/16 18:00 10/12/16 01:00 Novolin R SUBQ 1 unit Q6HR KATHIE Administration Protocol Ketorolac Tromethamine 30 mg 10/11/16 18:39 10/12/16 04:57 Toradol Inj IVP 10/16/16 18:38 30 mg Q6HR PRN Administration PAIN Ondansetron HCl 4 mg 10/11/16 16:56 10/12/16 02:27 Zofran Odt TL 4 mg Q6HR PRN Administration Nausea / Vomiting Sodium Chloride 10 ml 10/11/16 22:00 10/12/16 05:48 Normal Saline Flush 0.9% IVP Not Given Q8HR KATHIE Sucralfate 1 gm 10/11/16 18:00 10/11/16 21:18 Carafate PO 1 gm QID KATHIE Administration Tramadol HCl 100 mg 10/11/16 18:29 10/12/16 01:05 Ultram PO 100 mg Q4HR PRN Administration PAIN - Lab Result Lab results reviewed: Yes Fish Bone Diagrams: 10/12/16 07:25 10/12/16 07:25 Other Lab Results: Abnormal Lab Results 10/11/16 10/11/16 10/11/16 09:05 15:26 15:26 WBC RBC MCH Neutrophils # (Manual) Lymphocytes # (Manual) Glucose 130 mg/dL H mg/dL (70-100) POC Whole Bld Glucose Estim Average Glucose Magnesium 1.6 mg/dL L mg/dL (1.7-2.8) C-Reactive Protein 1.4 mg/dL H mg/dL (0-1.0) Urine Opiates Screen POSITIVE H (NEGATIVE) U Cannabinoids Screen POSITIVE H (NEGATIVE) 10/11/16 10/11/16 10/11/16 17:58 18:18 18:18 WBC 14.8 x10^3/uL H x10^3/uL (4.8-10.8) RBC 5.51 10^6/uL H 10^6/uL (4.20-5.40) MCH 26.9 pg L pg (27.0-31.0) Neutrophils # (Manual) 13.5 10^3/uL H 10^3/uL (1.5-6.6) Lymphocytes # (Manual) 1.0 10^3/uL L 10^3/uL (1.5-3.5) Glucose POC Whole Bld Glucose 127 mg/dL H mg/dL (70 - 100) Estim Average Glucose 120 H (70-100) Magnesium C-Reactive Protein Urine Opiates Screen U Cannabinoids Screen 10/11/16 10/11/16 10/12/16 20:34 23:38 05:49 WBC RBC MCH Neutrophils # (Manual) Lymphocytes # (Manual) Glucose POC Whole Bld Glucose 142 mg/dL H mg/dL 149 mg/dL H mg/dL 127 mg/dL H mg/dL (70 - 100) (70 - 100) (70 - 100) Estim Average Glucose Magnesium C-Reactive Protein Urine Opiates Screen U Cannabinoids Screen - EKG Results EKG Interpreted Independently: No - Diagnostic Imaging Results Diagnostic Imaging Results: positive: Prelim report reviewed Diagnostic Imaging Results Comments: Ultrasound showed hepatic steatosis with no gallbladder. No biliary duct dilitation. No acute process in the abdomen. CT of Abdomen and Pelvis: impression with no acute process. fatty liver disease - Additional Planning Condition/Complexity: Stable My Orders: My Active Orders 10/11/16 15:26 JUAN SCREEN W REFLEX TITER [REFLAB] Stat VITAMIN B1 (THIAMINE) PLASMA [REFLAB] Stat VITAMIN D, 1,25-DIHYDROXY [REFLAB] Stat 10/11/16 17:07 NPO [DIET] Dicyclomine [Bentyl] 20 mg PO QID PRN 10/11/16 17:19 Blood Glucose POC [RC] 0000,0600,1200,1800 Initiate Hypoglycemia Protocol [RC] .protocol 10/11/16 18:00 Gabapentin [Neurontin] 100 mg PO TID Insulin Regular Human [NovoLIN R] 1 - 5 unit SUBQ Q6HR Sucralfate [Carafate] 1 gm PO QID 10/11/16 18:29 traMADol [Ultram] 100 mg PO Q4HR PRN 10/11/16 18:39 Ketorolac Inj [Toradol Inj] 30 mg IVP Q6HR PRN 10/11/16 18:41 Multivitamin [Infuvite] 10 ml Thiamine Inj [Vitamin B-1 Inj] 100 mg Folic Acid Inj 1 mg Sodium Chloride 0.9% [Normal Saline 0.9%] 1,000 ml IV DAILY 10/11/16 19:00 Cholecalciferol [Vitamin D3] 5,000 unit PO DAILYWM 10/11/16 21:00 Gabapentin [Neurontin] 300 mg PO QPM 10/12/16 05:00 CMP [COMPREHENSIVE METABOLIC PANEL] [CHEM] DAILYLAB LIPID Panel [CHEM] Stat 10/12/16 07:00 methylPREDNISolone SUCCINATE [SOLU-Medrol (40MG VIAL)] 40 mg IVP TID 10/12/16 07:04 CBC - COMP BLD CT W/AUTO DIFF [HEME] Stat 10/12/16 07:06 MAGNESIUM [CHEM] Stat PHOSPHORUS [CHEM] Stat 10/12/16 07:45 LORazepam INJ [Ativan Inj] 1 mg IVP ONCE ONE 10/12/16 09:00 Buprenorphine HCl/Naloxone HCl [Suboxone 2 mg-0.5 mg Sl Film] 2 film TOP DAILY Escitalopram [Lexapro] 20 mg PO DAILY Nicotine 21 mg Patch [Nicoderm] 1 patch TOP DAILY Plan Discussed with:: Patient, Case Management Time Spent: 31-60 minutes Additional Planning Notes: Patient will require at least another 24-48 hours before discharging home. She is high risk for worsening co morbid conditions and will require IV medication with high risk for toxicity and additional diagnostics. Subjective - Subjective Patient Reports: Abdominal Pain, Nausea, Pain Nursing Reports: Pain, Vomitting (patient still asking for high levels of pain medication and is adamant for IV dilaudid.) Objective Vital Signs: Vital Signs - 24 hr 10/11/16 10/11/16 10/12/16 17:40 23:40 00:00 Temperature 37.3 C 37.0 C 36.8 C Heart Rate [ 75 82 Radial] Respiratory 16 16 Rate Blood Pressure 121/84 H 125/69 [Right Brachial artery] O2 Saturation 97 97 Oxygen O2 Source Room air I&O (Last 24 Hrs): Intake and Output Totals x24h 10/10/16 10/11/16 10/12/16 23:59 23:59 23:59 Intake Total 551 1007 Output Total 475 Balance 551 532 General: Oriented x3, Moderate distress HEENT: PERRLA Neck: Supple, No JVD Lymphatic: no adenopathy Neuro: Alert, Oriented Times 3 Cardiovascular: Regular rate, Normal S1, Normal S2, No murmurs Respiratory: No respiratory distress, Breath sounds nml Abdomen: Soft, No masses, Other (obese with tenderness ot right upper quadrant with palpation) Rectal: Stool - Heme NEG Extremities: No clubbing, No cyanosis Skin: No rashes, No breakdown, No significant lesion Comments/Notes: acne obn bilateral cheeks - Results Results: Laboratory Results WBC 14.8 x10^3/uL (4.8-10.8) H 10/11/16 18:18 RBC 5.51 10^6/uL (4.20-5.40) H 10/11/16 18:18 Hgb 14.8 g/dL (12.0-16.0) 10/11/16 18:18 Hct 45.7 % (37.0-47.0) 10/11/16 18:18 MCV 83.1 fL (81.0-99.0) 10/11/16 18:18 MCH 26.9 pg (27.0-31.0) L 10/11/16 18:18 MCHC 32.4 g/dL (32.0-36.0) 10/11/16 18:18 RDW 14.0 % (12.0-15.0) 10/11/16 18:18 Plt Count 261 10^3/uL (130-450) 10/11/16 18:18 MPV 8.9 fL (7.9-10.8) 10/11/16 18:18 Neut # Not Reportable 10/11/16 18:18 Lymph # Not Reportable 10/11/16 18:18 [place] # Not Reportable 10/11/16 18:18 Eos # Not Reportable 10/11/16 18:18 Baso # Not Reportable 10/11/16 18:18 Absolute Nucleated RBC Not Reportable 10/11/16 18:18 Total Counted 100 10/11/16 18:18 Band Neuts % (Manual) 0 % (0-10) 10/11/16 18:18 Neutrophils # (Manual) 13.5 10^3/uL (1.5-6.6) H 10/11/16 18:18 Lymphocytes # (Manual) 1.0 10^3/uL (1.5-3.5) L 10/11/16 18:18 Monocytes # (Manual) 0.3 10^3/uL (0.0-1.0) 10/11/16 18:18 Nucleated RBCs Not Reportable 10/11/16 18:18 Differential Comment MANUAL DIFFERENTIAL 10/11/16 18:18 Platelet Estimate NORMAL (130-450,000) (NORMAL) 10/11/16 18:18 Platelet Morphology NORMAL APPEARANCE (NORMAL) 10/11/16 18:18 RBC Morph Micro Appear NORMAL APPEARANCE (NORMAL) 10/11/16 18:18 Sodium 138 mmol/L (135-145) 10/11/16 15:26 Potassium 3.9 mmol/L (3.5-5.0) 10/11/16 15:26 Chloride 106 mmol/L (101-111) 10/11/16 15:26 Carbon Dioxide 21 mmol/L (21-32) 10/11/16 15:26 Anion Gap 11.0 (6-13) 10/11/16 15:26 BUN 9 mg/dL (6-20) 10/11/16 15:26 Creatinine 0.5 mg/dL (0.4-1.0) 10/11/16 15:26 Estimated GFR (MDRD) 145 (>89) 10/11/16 15:26 Glucose 130 mg/dL (70-100) H 10/11/16 15:26 POC Whole Bld Glucose 127 mg/dL (70 - 100) H 10/12/16 05:49 Glycated Hemoglobin 5.8 % (4.6-6.2) 10/11/16 18:18 Estim Average Glucose 120 (70-100) H 10/11/16 18:18 Calcium 8.9 mg/dL (8.5-10.3) 10/11/16 15:26 Magnesium 1.6 mg/dL (1.7-2.8) L 10/11/16 15:26 Total Bilirubin 0.4 mg/dL (0.2-1.0) 10/11/16 15:26 AST 26 IU/L (10-42) 10/11/16 15:26 ALT 26 IU/L (10-60) 10/11/16 15:26 Alkaline Phosphatase 81 IU/L (42-121) 10/11/16 15:26 C-Reactive Protein 1.4 mg/dL (0-1.0) H 10/11/16 15:26 Total Protein 7.8 g/dL (6.7-8.2) 10/11/16 15:26 Albumin 4.3 g/dL (3.2-5.5) 10/11/16 15:26 Globulin 3.5 g/dL (2.1-4.2) 10/11/16 15:26 Albumin/Globulin Ratio 1.2 (1.0-2.2) 10/11/16 15:26 Amylase 44 U/L (28-100) 10/11/16 15:26 Lipase 22 U/L (22-51) 10/11/16 15:26 Vitamin B12 385 pg/mL (180-914) 10/11/16 15:26 TSH 1.26 uIU/mL (0.34-5.60) 10/11/16 15:26 Cortisol PM Sample 39.9 ug/dL 10/11/16 20:07 Urine Color YELLOW 10/11/16 09:05 Urine Clarity CLEAR (CLEAR) 10/11/16 09:05 Urine pH 7.0 PH (5.0-7.5) 10/11/16 09:05 Ur Specific [place] 1.015 (1.002-1.030) 10/11/16 09:05 Urine Protein NEGATIVE mg/dL (NEGATIVE) 10/11/16 09:05 Urine Glucose (UA) NEGATIVE mg/dL (NEGATIVE) 10/11/16 09:05 Urine Ketones NEGATIVE mg/dL (NEGATIVE) 10/11/16 09:05 Urine Occult Blood NEGATIVE (NEGATIVE) 10/11/16 09:05 Urine Nitrite NEGATIVE (NEGATIVE) 10/11/16 09:05 Urine Bilirubin NEGATIVE (NEGATIVE) 10/11/16 09:05 Urine Urobilinogen 0.2 (NORMAL) E.U./dL (NORMAL) 10/11/16 09:05 Ur Leukocyte Esterase NEGATIVE (NEGATIVE) 10/11/16 09:05 Ur Microscopic Review NOT INDICATED 10/11/16 09:05 Urine Culture Comments NOT INDICATED 10/11/16 09:05 Urine HCG, Qual NEGATIVE 10/11/16 09:05 Urine Opiates Screen POSITIVE (NEGATIVE) H 10/11/16 09:05 Ur Oxycodone Screen NEGATIVE (NEGATIVE) 10/11/16 09:05 Urine Methadone Screen NEGATIVE (NEGATIVE) 10/11/16 09:05 Ur Propoxyphene Screen NEGATIVE (NEGATIVE) 10/11/16 09:05 Ur Barbiturates Screen NEGATIVE (NEGATIVE) 10/11/16 09:05 Ur Tricyclics Screen NEGATIVE (NEGATIVE) 10/11/16 09:05 Ur Phencyclidine Scrn NEGATIVE (NEGATIVE) 10/11/16 09:05 Ur Amphetamine Screen NEGATIVE (NEGATIVE) 10/11/16 09:05 U Methamphetamines Scrn NEGATIVE (NEGATIVE) 10/11/16 09:05 U Benzodiazepines Scrn NEGATIVE (NEGATIVE) 10/11/16 09:05 Urine Cocaine Screen NEGATIVE (NEGATIVE) 10/11/16 09:05 U Cannabinoids Screen POSITIVE (NEGATIVE) H 10/11/16 09:05
[2016-10-12 07:38] LABS: BASOPHILS # (AUTO) 0.1 10^3/uL (0.0-0.1); BASOPHILS % (AUTO) 0.5 %; HCT - HEMATOCRIT 40.7 % (37.0-47.0); HGB - HEMOGLOBIN 13.8 g/dL (12.0-16.0); LYMPHOCYTES # (AUTO) 1.8 10^3/uL (1.5-3.5); LYMPHOCYTES % (AUTO) 11.7 %; MEAN CORPUSCULAR HEMOGLOBIN 27.5 pg (27.0-31.0); MEAN CORPUSCULAR HGB CONC 33.9 g/dL (32.0-36.0); MEAN CORPUSCULAR VOLUME 81.1 fL (81.0-99.0); MEAN PLATELET VOLUME 8.2 fL (7.9-10.8); MONOCYTES # (AUTO) 0.9 10^3/uL (0.0-1.0); MONOCYTES % (AUTO) 5.8 %; NEUTROPHILS # (AUTO) 12.5 10^3/uL (1.5-6.6); RED BLOOD COUNT 5.01 10^6/uL (4.20-5.40); RED CELL DISTRIBUTION WIDTH 13.5 % (12.0-15.0); UNCORRECTED WHITE BLOOD COUNT 15.2 x10^3/uL; WHITE BLOOD COUNT 15.2 x10^3/uL (4.8-10.8)
[2016-10-12] MEDS ORDERED: LORazepam 2 MG/ML SYRINGE IVP ONE (07:45)
[2016-10-12] MEDS: methylPREDNISolone SUCCINATE 40 MG/ML VIAL IVP SCH ×3 (07:49→21:38)
[2016-10-12 07:54] LABS: MAGNESIUM 2.2 mg/dL (1.7-2.8); PHOSPHORUS 2.9 mg/dL (2.5-4.6)
[2016-10-12 07:57] LABS: ALBUMIN/GLOBULIN RATIO 1.2 (1.0-2.2); BILIRUBIN,TOTAL < 0.2 mg/dL (0.2-1.0); BUN - BLOOD UREA NITROGEN 10 mg/dL (6-20); CALCIUM 8.6 mg/dL (8.5-10.3); CARBON DIOXIDE - CO2 20 mmol/L (21-32); CHLORIDE 105 mmol/L (101-111); CHOL/HDL RATIO 4.6 (<4.4); CHOLESTEROL 283 mg/dL; CREATININE 0.8 mg/dL (0.4-1.0); GFR - MDRD 84 (>89); GLUCOSE 139 mg/dL (70-100); HDL CHOLESTEROL 61 mg/dL; LDL/HDL RATIO 3.2 (<4.4); POTASSIUM 3.3 mmol/L (3.5-5.0); SODIUM 137 mmol/L (135-145); TOTAL PROTEIN 7.6 g/dL (6.7-8.2); TRIGLYCERIDES 145 mg/dL; VLDL CHOLESTEROL 29 mg/dL
[2016-10-12] MEDS ORDERED: hydrOXYzine 50 MG/ML VIAL IM ONE (08:51)
[2016-10-12] MEDS ORDERED: BUPRENORPHINE HCL TOP SCH (09:00)
[2016-10-12] MEDS ORDERED: [UNRECOGNIZED DRUG - OTHER] TOP SCH (09:00)
[2016-10-12] MEDS ORDERED: NALOXONE HCL TOP SCH (09:00)
[2016-10-12] MEDS ORDERED: HYDROmorphone 1 MG/ML SYRINGE IVP ONE (09:15)
[2016-10-12] MEDS ORDERED: diazePAM INJ 5 MG/ML SYRINGE IVP ONE ×2 (09:15→23:00)
[2016-10-12] MEDS: SUCRALFATE 1 GM/10 ML UDC PO SCH ×4 (09:16→21:38)
[2016-10-12] MEDS: POLYETHYLENE GLYCOL 3350 17 GM PACKET PO SCH (09:18)
[2016-10-12] MEDS ORDERED: PROMETHAZINE INJ 25 MG in SODIUM CHLORIDE 0.9% 50 ML IV ONE (09:30)
[2016-10-12] MEDS: ESCITALOPRAM 10 MG TABLET PO SCH (09:58)
[2016-10-12] MEDS: MULTIVITAMIN 10 ML, THIAMINE INJ 100 MG, FOLIC ACID INJ 1 MG in SODIUM CHLORIDE 0.9% 1,... IV SCH (09:58)
[2016-10-12] MEDS: ALPRAZolam 0.25 MG TABLET PO SCH ×2 (09:58→21:37)
[2016-10-12] MEDS: NICOTINE 21 MG PATCH TOP SCH (11:05)
[2016-10-12] MEDS: CHOLECALCIFEROL 5,000 UNIT CAPSULE PO SCH (11:05)
[2016-10-12] MEDS: CIPROFLOXACIN 400 MG/200 ML 200 ML IV SCH (11:34)
[2016-10-12] MEDS ORDERED: LIDOCAINE VISCOUS 2% 15 ML UDC MM PRN (11:56)
[2016-10-12] MEDS: GABAPENTIN 300 MG CAPSULE PO SCH ×3 (11:59→21:37)
[2016-10-12] MEDS ORDERED: PROCHLORPERAZINE 10 MG/2 ML VIAL IVP SCH (12:00)
[2016-10-12] MEDS ORDERED: OMEGA-3 ACID ETHYL ESTERS 1 GM CAPSULE PO SCH (12:00)
[2016-10-12] MEDS: diazePAM INJ 5 MG/ML SYRINGE IVP ONE ×2 (12:13→12:57)
[2016-10-12] MEDS: SACCHAROMYCES BOULARDII 250 MG CAPSULE PO SCH ×2 (13:15→16:58)
[2016-10-12] MEDS: POTASSIUM CHLORIDE 20 MEQ TABLET PO SCH (13:15)
[2016-10-12] MEDS: metroNIDAZOLE 500 MG/100 ML 100 ML IV SCH ×3 (13:16→23:29)
[2016-10-12] MEDS ORDERED: HYDROmorphone 1 MG/ML SYRINGE IM ONE (17:00)
[2016-10-12] MEDS ORDERED: PROMETHAZINE 25 MG/1 ML VIAL IM ONE (17:00)
[2016-10-12] MEDS ORDERED: diphenhydrAMINE INJ 50 MG/ML VIAL IM ONE (17:00)
[2016-10-12] MEDS: OMEGA-3 ACID ETHYL ESTERS 1 GM CAPSULE PO SCH (21:41)
[2016-10-12] MEDS ORDERED: PROCHLORPERAZINE 10 MG/2 ML VIAL IVP ONE (22:00)
[2016-10-13] MEDS: CIPROFLOXACIN 400 MG/200 ML 200 ML IV SCH (00:28)
[2016-10-13] MEDS: INSULIN REGULAR HUMAN 100 UNIT/1 ML 10 ML MDV SUBQ SCH ×2 (03:32→05:29)
[2016-10-13] MEDS: SODIUM CHLORIDE FLUSH 0.9% 10 ML SYRINGE IVP SCH (05:00)
[2016-10-13] MEDS: GABAPENTIN 300 MG CAPSULE PO SCH (05:13)
[2016-10-13] MEDS: methylPREDNISolone SUCCINATE 40 MG/ML VIAL IVP SCH (05:13)
[2016-10-13] MEDS: metroNIDAZOLE 500 MG/100 ML 100 ML IV SCH (05:13)
[2016-10-13] MEDS: cloNIDine 0.1 MG TABLET PO SCH (05:13)
[2016-10-13] MEDS: KETOROLAC 30 MG/ML VIAL IVP PRN ×2 (05:47→11:50)
[2016-10-13] MEDS: traMADol 50 MG TABLET PO PRN ×2 (05:47→11:50)
[2016-10-13 06:46] LABS: BASOPHILS % (AUTO) 0.2 %; HCT - HEMATOCRIT 40.1 % (37.0-47.0); HGB - HEMOGLOBIN 13.3 g/dL (12.0-16.0); LYMPHOCYTES # (AUTO) 2.1 10^3/uL (1.5-3.5); LYMPHOCYTES % (AUTO) 13.4 %; MEAN CORPUSCULAR HEMOGLOBIN 27.2 pg (27.0-31.0); MEAN CORPUSCULAR HGB CONC 33.2 g/dL (32.0-36.0); MEAN PLATELET VOLUME 8.6 fL (7.9-10.8); MONOCYTES # (AUTO) 0.7 10^3/uL (0.0-1.0); MONOCYTES % (AUTO) 4.3 %; NEUTROPHILS # (AUTO) 12.8 10^3/uL (1.5-6.6); NEUTROPHILS % (AUTO) 82.1 %; RED CELL DISTRIBUTION WIDTH 14.1 % (12.0-15.0); UNCORRECTED WHITE BLOOD COUNT 15.5 x10^3/uL; WHITE BLOOD COUNT 15.5 x10^3/uL (4.8-10.8)
[2016-10-13] MEDS: ONDANSETRON ODT 4 MG TABLET TL PRN (06:47)
[2016-10-13 07:02] LABS: ALBUMIN/GLOBULIN RATIO 1.3 (1.0-2.2); BILIRUBIN,TOTAL 0.5 mg/dL (0.2-1.0); CALCIUM 8.6 mg/dL (8.5-10.3); CREATININE 0.7 mg/dL (0.4-1.0); POTASSIUM 3.7 mmol/L (3.5-5.0); TOTAL PROTEIN 7.2 g/dL (6.7-8.2)
[2016-10-13 08:04] VITALS: BP 129/71
[2016-10-13] MEDS: ESCITALOPRAM 10 MG TABLET PO SCH (08:54)
[2016-10-13] MEDS: CHOLECALCIFEROL 5,000 UNIT CAPSULE PO SCH (08:54)
[2016-10-13] MEDS: OMEGA-3 ACID ETHYL ESTERS 1 GM CAPSULE PO SCH (08:54)
[2016-10-13] MEDS: ALPRAZolam 0.25 MG TABLET PO SCH (08:54)
[2016-10-13] MEDS: SACCHAROMYCES BOULARDII 250 MG CAPSULE PO SCH (08:54)
[2016-10-13] MEDS: POLYETHYLENE GLYCOL 3350 17 GM PACKET PO SCH (08:55)
[2016-10-13] MEDS: POTASSIUM CHLORIDE 20 MEQ TABLET PO SCH (08:55)
[2016-10-13] MEDS: NICOTINE 21 MG PATCH TOP SCH (08:55)
[2016-10-13] MEDS: SUCRALFATE 1 GM/10 ML UDC PO SCH (08:55)
[2016-10-13] MEDS: SODIUM CHLORIDE 0.9% 1,000 ML IV SCH (09:22)
[2016-10-13] MEDS ORDERED: MULTIVITAMIN W/MINERALS TABLET PO SCH (10:00)
--- NOTE | 2016-10-13 10:50 | Discharge Plan ---
Discharge Plan Disposition: Home, Self Care Condition: Good Prescriptions: Sucralfate [Carafate] 1 gm PO QID #40 oral.susp Ciprofloxacin [Cipro] 250 mg PO Q12H #14 tablet Metronidazole [Flagyl] 500 mg PO BID #14 tablet Saccharomyces Boulardii [Florastor] 250 mg PO BID #60 capsule [place]-3 Acid Ethyl Esters [Lovaza] 1 gm PO BID #60 capsule Meloxicam [Mobic] 15 mg PO DAILY #30 tablet Gabapentin [Neurontin] 300 mg PO TID #90 capsule Nicotine 21 mg Patch [Nicoderm] 1 patch TOP DAILY #10 patch Promethazine [Phenergan] 25 - 50 mg PO Q6H PRN #15 tab PRN Reason: Nausea / Vomiting Multivitamin W/Minerals [Theragran M] 1 tab PO DAILYWM #30 tablet traMADol [Ultram] 100 mg PO Q6H PRN #60 tablet PRN Reason: Pain Cholecalciferol [Vitamin D3] 5,000 unit PO BID #60 capsule Alprazolam [Xanax] 0.5 mg PO BID #60 tablet Ondansetron Odt [Zofran Odt] 4 mg TL Q6H PRN #15 tablet PRN Reason: Nausea / Vomiting Diet: Diabetic (anti inflammatory diet with no gluten or dairy. avoid corn and peanuts and soy if possible. 3 weeks detox and then may "try" one ingredient to see if there is sensitivities. If yes then avoid this food product) Activity Restrictions: Activity as Tolerated Shower Restrictions: No Driving Restrictions: No Weight Bearing: Full Weight Instruction Topics: Gastritis Tx, Metabolic Syndrome Losing Excess Weight Additional Instructions or Follow Up instructions: Please take all medication as prescribed. Diet: follow the anti inflammatory diet for at least 21 days if not a little longer to completely detox the body. avoid dairy and gluten 100%. exercise as tolerated and try to do at least 5 days at least 30 minutes a day. Avoid ALL sugar beverages especially refined sugar and sodas. You can use splenda and truvia to varsha drinks. mostly water is preferred. you can drink tea and coffee. caffeine is ok in moderation. Get at least 8 hours of sleep a night. Be sure to take melatonin 10mg nightly along with Tramadol, xanax, phenergan and gabapentin. This "cocktail" for 7 days helps to get you through the "withdrawal" from the inflammation and drugs in your system. Please see your primary care provider within 1 week of discharge. Website for additional information on detox and functional medicine and autoimmune disease.: [email or web address] [employer]: Supplements for inflammation T [employer] (These websites are combining to become [employer]) [employer] this website will be accessible in about 2 weeks. HOOD [employer], MPH/MSN [email or web address] Follow-Up Care: Dietitian No Smoking: If you smoke, Please STOP! Call for help. Follow-up with: Genaro Meza MD [Primary Care Provider] -
[2016-10-13] MEDS ORDERED: diazePAM INJ 5 MG/ML SYRINGE IM ONE (11:30)
[2016-10-13] MEDS ORDERED: HYDROmorphone 1 MG/ML SYRINGE IM ONE (11:30)
[2016-10-13] MEDS ORDERED: diphenhydrAMINE INJ 50 MG/ML VIAL IM ONE (11:30)
[2016-10-13] MEDS ORDERED: PROMETHAZINE 25 MG/1 ML VIAL IM ONE (11:30)
[2016-10-13] MEDS ORDERED: MELOXICAM 7.5 MG TABLET PO SCH (12:00)
--- NOTE | 2016-10-13 18:39 | DISCHARGE SUMMARY ---
DATE OF ADMISSION: 10/11/2016 DATE OF DISCHARGE: 10/13/2016 CHIEF COMPLAINT: Nausea, vomiting, diarrhea. ADMITTING DIAGNOSIS: Cyclical vomiting, intractable. DISCHARGE DIAGNOSES 1. Acute cyclical vomiting, intractable, secondary to marijuana usage with dependence. 2. [id number]-ta-[id number] metabolic syndrome with obesity with body mass index greater than 30 with excessive caloric intake. 3. Leukocytosis, acute, from withdrawal from marijuana. 4. Hypokalemia due to loss of potassium, acute. 5. Fat-induced hyperlipidemia. 6. Nicotine dependence, cigarettes, uncomplicated. 7. Substance abuse, cannabinoids, with dependence CONSULTS: None. PROCEDURES 1. Ultrasound of abdomen. Impression shows status post cholecystectomy and diffusely echogenic liver with hepatic steatosis. 2. CT of abdomen and pelvis. Impression shows fatty infiltration of liver, no acute inflammatory or obstructive process seen in the abdomen or pelvis. HOSPITAL COURSE AND TREATMENT: The patient is a 30-year-old obese female who presented to the ER with a complaint of intractable vomiting and nausea and abdominal pain, mid upper epigastric. The patient was well known to the ER since this was her third visit within 6 weeks to the ER for spasms in the upper mid epigastric region and intractable pain. The patient was evaluated by the ER provider and found to have significant pain and spasming in the upper mid epigastric region. She has had similar symptoms in the past. ER provider tried Bentyl, Compazine, Phenergan, all IV, and the patient continued to have symptomatology. The patient was also given IV Dilaudid 4 mg over the course of 2 -3 hours and still continued to have vomiting and severe pain. The patient was then admitted for further evaluation. Upon evaluation by the hospitalist team, the patient was found to have elevated CRP, elevated white blood cell count, cortisol level elevated, cholesterol levels elevated, and significant metabolic syndrome. The patient was placed on a gluten-free, dairy-free, noninflammatory diet. She was given IV fluids, normal saline and banana bag x2 for supplementation and nutrition. The patient was also given steroids, since she does have a history of ulcerative colitis, to help with the spasms. She was given Valium for abdominal spasms, Phenergan for the intractable vomiting, gabapentin for marijuana withdrawal and pain, and Ativan for withdrawal. The patient continued on home medications as prescribed, including Carafate, tramadol, and Bentyl. The patient was started on tramadol and Toradol as anti-inflammatory and pain reliever, and Dilaudid/narcotics were avoided. The patient does take Suboxone; however, since she was given IV Dilaudid in the ER, Suboxone was stopped on the floor. The first night of inpatient treatment, she was up, having sweats and apparent withdrawal symptoms from either opioids or narcotics. The patient continued on regular regime, including adding Xanax for the anxiety. The patient was counseled on smoking cessation and cessation of marijuana usage. She was found to have a CRP greater than 100 with significant inflammation in the gut. The patient was also treated with steroids 125 mg of methylprednisolone and then tapered to 60 mg prednisone at discharge. On the day of discharge, the patient's withdrawal symptoms had dissipated. She was no longer having spasms in the abdomen, and she was given a multitude of information regarding anti-inflammatory diet, substance abuse, smoking cessation , and opiate addiction. The patient verbally understood all these instructions given. Vital signs were stable. She was to go home with family members and follow up outpatient for noninflammatory diet and for opiate and pain addiction. PHYSICAL EXAMINATION CONSTITUTIONAL: The patient was alert, in no acute distress. EYES: Pupils equal, round and react to light and accommodation. Conjunctivae and sclerae nonicteric, not injected. ENT: Nares are patent. No nasal discharge. OROPHARYNX: No masses, exudates or lesions. Mucous membranes are moist. NECK: Supple. No thyromegaly. SKIN: Warm, dry, intact. Normal turgor. No evidence of rash, lesions, or cellulitis. HEMATOLOGIC: No active bleeding. The patient is hemodynamically stable. PSYCHIATRIC: Behavior is appropriate, pleasant mood, very positive attitude towards lifestyle changes. NEUROLOGIC: She was alert, GCS 15. Cranial nerves 2-12 grossly intact. Sensory is intact. GASTROINTESTINAL: Abdomen is soft, nontender. Bowel sounds are present in 4 quadrants. RESPIRATORY: Breath sounds are clear and equal bilaterally to auscultation and percussion. No retractions or nasal flaring. CARDIOVASCULAR: S1, S2 noted. No gallops, murmurs or rubs. LYMPHATICS: No cervical, axillary, supraclavicular lymphadenopathy is noted. VITAL SIGNS: Temperature 36.8, heart rate 75, blood pressure 129/71, respirations 19. She is saturating 98% on room air. MEDICATIONS AT THE TIME OF DISCHARGE 1. Lexapro. 2. Carafate. 3. Cipro. 4. Flagyl. 5. Florastor. 6. Lovaza. 7. Mobic. 8. Neurontin. 9. Nicoderm. 10. Phenergan. 11. Theragran M. 12. Ultram. 13. Vitamin D3. 14. Xanax. 15. Zofran. INSTRUCTIONS FOR FOLLOWUP AT DISCHARGE 1. Activity to be as tolerated. Continue to get plenty of exercise and sleep at least 7-8 hours at night. Take melatonin to help with sleep and the prescribed medications that were given to you for sleep. 2. Diet: Continue following anti-inflammatory diet, including avoidance of gluten and dairy. These items can be very inflammatory when you have an underlying metabolic syndrome. Drink plenty of fluids, avoid sodas, and limit caffeine. FOLLOWUP: The patient was instructed to follow up with primary care provider within one week of discharge. She was given prescriptions for probiotics, vitamin D, multivitamins, Cipro and Flagyl for the ulcerative colitis flare, along with tramadol, Mobic, Phenergan, Zofran, and [place] 3. The patient verbally understood she is to take all home medications as prescribed. She was given a multitude of information regarding anti-inflammatory diet and substance abuse. She verbally stated that she agreed and was very positive about changing her diet and improving her lifestyle. She had no signs of withdrawal at the time of discharge. The patient was to remain a FULL CODE STATUS. Time spent on education, counseling, and assessment was 75 minutes. The patient was to be discharged home with a friend, so she would be receiving medications to go home with, including Phenergan and Dilaudid, one-time dose. The patient was discharged and remained a FULL CODE STATUS. JOB #: [id number] EXT JOB #:[id number] ZEKE
== END 2016-10-13 12:45 | disposition home or self-care (01) | DRG 103 ==
LOC: ED 07:18 → MS 16:56
PROVIDERS: ADMIT Nurse Practitioner; ATTEND Nurse Practitioner
DX: G43.A1 Cyclical vomiting, in migraine, intractable (principal); F15.23 Other stimulant dependence with withdrawal; R19.7 Diarrhea, unspecified; E66.9 Obesity, unspecified; E88.81 Metabolic syndrome and other insulin resistance; F17.210 Nicotine dependence, cigarettes, uncomplicated; D72.829 Elevated white blood cell count, unspecified; E87.6 Hypokalemia; E78.5 Hyperlipidemia, unspecified; Z90.49 Acquired absence of other specified parts of digestive tract; R10.9 Unspecified abdominal pain; Z88.2 Allergy status to sulfonamides; Z88.5 Allergy status to narcotic agent; F32.9 Major depressive disorder, single episode, unspecified; Z83.3 Family history of diabetes mellitus; K21.9 Gastro-esophageal reflux disease without esophagitis; J45.909 Unspecified asthma, uncomplicated; Z68.31 Body mass index [BMI] 31.0-31.9, adult
CPT/HCPCS: 36415; 74177; 76700; 80053; 80061; 80306; 81001; 81003; 81025; 82150; 82533; 82607; 82652; 83036; 83690; 83735; 84100; 84425; 84436; 84443; 84481; 85025; 86038; 86140; 87045; 87046; 87086; 87493; 96365; 96366; 96375; 96376; 99283; 99285

== ENCOUNTER 2016-10-16 07:52 | Emergency (ER) | payer MEDICAID ==
--- NOTE | 2016-10-16 08:08 | ED Physician Documentation ---
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, ulcerative colitis, on suboxone was seen in ER numerous times last 2 months and was just admitted 10/11-10/13 for cyclic vomiting, had CT and sono during that admission showing no acute process , neg HCG while in the hospital she was txed with bentyl compazine phenergan dilaudid tramadol ativan xanax gabapentin carafate and steroids, she was dced on cipro and flagyl (for UC flare?) tramadol mobic pehenergan and zofran and well as her usual home meds pt with conitnued NV (bilious no blood) and diarrhea (yellow) burning epigastric gastrisits pain and cramping lower abd pain she advises me that she does not think she needs an IV but that she thinks if we can break the cycle of NV pain with IM phenergan and dilaudid she will be able to go home and resume her dc plan Review of Systems Constitutional: denies: Fever Cardiac: denies: Chest pain / pressure Respiratory: denies: Dyspnea GI: reports: Abdominal Pain, Nausea, Vomiting, Diarrhea. 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, Other : None HEENT: None Psych: Depression Musculoskeletal: None Derm: Other - Past Surgical History Past Surgical History: Yes General: Cholecystectomy HEENT: Tonsil/Adenoidectomy - Present Medications Home Medications: Ambulatory Orders Medication Instructions Recorded Confirmed Escitalopram Oxalate [Lexapro] 20 mg PO DAILY 11/23/15 10/11/16 Dicyclomine [Bentyl] 20 mg PO QID PRN #20 capsule 10/10/16 10/11/16 Alprazolam [Xanax] 0.5 mg PO BID #60 tablet 10/13/16 Cholecalciferol [Vitamin D3] 5,000 unit PO BID #60 capsule 10/13/16 Ciprofloxacin [Cipro] 250 mg PO Q12H #14 tablet 10/13/16 Gabapentin [Neurontin] 300 mg PO TID #90 capsule 10/13/16 Meloxicam [Mobic] 15 mg PO DAILY tablet 10/13/16 Meloxicam [Mobic] 15 mg PO DAILY #30 tablet 10/13/16 Metronidazole [Flagyl] 500 mg PO BID #14 tablet 10/13/16 Multivitamin W/Minerals [Theragran 1 tab PO DAILYWM #30 tablet 10/13/16 M] Nicotine 21 mg Patch [Nicoderm] 1 patch TOP DAILY #10 patch 10/13/16 [place]-3 Acid Ethyl Esters [Lovaza] 1 gm PO BID #60 capsule 10/13/16 Ondansetron Odt [Zofran Odt] 4 mg TL Q6H PRN #15 tablet 10/13/16 Promethazine [Phenergan] 25 - 50 mg PO Q6H PRN #15 tab 10/13/16 Saccharomyces Boulardii [Florastor] 250 mg PO BID #60 capsule 10/13/16 Sucralfate [Carafate] 1 gm PO QID #40 oral.susp 10/13/16 traMADol [Ultram] 100 mg PO Q6H PRN #60 tablet 10/13/16 Promethazine Supp [Phenergan Supp] 25 mg ME Q6H PRN #10 supp 10/16/16 - Allergies Allergies/Adverse Reactions: Allergies Allergy/AdvReac Type Severity Reaction Status Date / Time morphine AdvReac Emesis Verified 10/16/16 12:37 Sulfa (Sulfonamide AdvReac Respiratory Verified 10/16/16 12:37 Antibiotics) - Social History Does the pt smoke?: Yes Smoking Status: Current every day smoker Does the pt drink ETOH?: Yes Does the pt have substance abuse?: Yes - Immunizations Immunizations are current?: Yes - POLST Patient has POLST: No PD ED PE NORMAL - Vitals Vital signs reviewed: Yes (high BP) - General General: Alert and oriented X 3, Other (vomiting actively) - Cardiac Cardiac: RRR - Respiratory Respiratory: No respiratory distress, Clear bilaterally - Abdomen Abdomen: Soft, Other (TTP diffusely without peritoneal signs) - Derm Derm: Normal color - Neuro Neuro: Alert and oriented X 3 Results - Vitals Vitals: Vital Signs - 24 hr 10/16/16 10/16/16 08:00 10:32 Temperature 35.7 C L Heart Rate 91 69 Respiratory 15 14 Rate Blood Pressure 154/114 H 149/82 H O2 Saturation 100 100 Oxygen O2 Source Room air PD MEDICAL DECISION MAKING - ED course ED course: 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 and has nl QT pt better after meds still asking for more meds and also given zofran and GI cocktail and carafate asked for vicodin rx to go home which I declined (not appropriate for this condition and pt is on a suboxone program) Departure - Departure Disposition: Home, Self Care Clinical Impression: Abdominal pain Condition: Good Instructions: Abdominal Pain Follow-Up: Genaro Meza MD [Primary Care Provider] - Comments: Continue your medications as prescribed when you were discharged from the hospital And please get your blood pressure rechecked - it was high today Discharge Date/Time: 10/16/16 10:33
[2016-10-16] MEDS ORDERED: PROMETHAZINE 25 MG/1 ML VIAL IM STA (08:36)
[2016-10-16] MEDS ORDERED: HYDROmorphone 1 MG/ML SYRINGE IM STA (08:36)
[2016-10-16] MEDS ORDERED: PROMETHAZINE 25 MG/1 ML VIAL ONE (08:37)
[2016-10-16] MEDS ORDERED: HYDROmorphone 1 MG/ML SYRINGE ONE (08:38)
[2016-10-16] MEDS ORDERED: DICYCLOMINE 10 MG CAPSULE PO STA (09:02)
[2016-10-16] MEDS ORDERED: DICYCLOMINE 10 MG CAPSULE PO ONE (09:06)
[2016-10-16] MEDS ORDERED: LIDOCAINE VISCOUS 2% 15 ML UDC MM STA (09:35)
[2016-10-16] MEDS ORDERED: MAG HYDROX/AL HYDROX/SIMETH 30 ML UDC PO STA (09:35)
[2016-10-16] MEDS ORDERED: ONDANSETRON ODT 4 MG TABLET TL STA (09:35)
[2016-10-16] MEDS ORDERED: SUCRALFATE 1 GM/10 ML UDC PO STA (09:35)
[2016-10-16] MEDS ORDERED: SUCRALFATE 1 GM/10 ML UDC ONE (09:53)
[2016-10-16] MEDS ORDERED: LIDOCAINE VISCOUS 2% 15 ML UDC MM ONE (09:53)
[2016-10-16] MEDS ORDERED: ONDANSETRON ODT 4 MG TABLET ONE (09:53)
[2016-10-16] MEDS ORDERED: MAG HYDROX/AL HYDROX/SIMETH 30 ML UDC ONE (09:54)
[2016-10-16 10:34] VITALS: BP 149/82
== END 2016-10-16 10:33 | disposition home or self-care (01) ==
LOC: ED 07:52
DX: R10.13 Epigastric pain (principal); R11.2 Nausea with vomiting, unspecified; Z87.19 Personal history of other diseases of the digestive system; J45.909 Unspecified asthma, uncomplicated; K21.9 Gastro-esophageal reflux disease without esophagitis; F17.200 Nicotine dependence, unspecified, uncomplicated
CPT/HCPCS: 80053; 83690; 85025; 99283

== ENCOUNTER 2016-10-16 12:31 | Emergency (ER) | payer MEDICAID ==
[2016-10-16] MEDS ORDERED: SODIUM CHLORIDE 0.9% 2,000 ML IV ONE (14:24)
[2016-10-16] MEDS ORDERED: PROMETHAZINE INJ 25 MG in SODIUM CHLORIDE 0.9% 50 ML IV STA ×2 (14:25→15:18)
[2016-10-16] MEDS ORDERED: HALOPERIDOL 5 MG/ML VIAL IM STA ×2 (14:25→14:28)
[2016-10-16] MEDS ORDERED: diphenhydrAMINE INJ 50 MG/ML VIAL IVP STA (14:27)
[2016-10-16] MEDS ORDERED: HALOPERIDOL 5 MG/ML VIAL ONE (14:43)
--- NOTE | 2016-10-16 14:43 | ED Physician Documentation ---
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 (per EMR dc summary, pt denies) , ulcerative colitis, on suboxone was seen in ER numerous times last 2 months and was just admitted 10/11-10/13 for cyclic vomiting, had CT and sono during that admission showing no acute process , neg HCG while in the hospital she was txed with bentyl compazine phenergan dilaudid tramadol ativan xanax gabapentin carafate and steroids, she was dced on cipro and flagyl (for UC flare?) tramadol mobic pehenergan and zofran and well as her usual home meds pt with continued NV (bilious no blood) and diarrhea (yellow) burning epigastric gastritis pain and cramping lower abd pain pt seen by me this AM - advised me she need dilaudid 2 mg IM and phenergan and then she would probably be able to resume her home med regimen, she was given these meds, then needed carafate and GI cocktail and zofran ODT as well, was better and dced home, she requested a few vicodin which i did not think was appropriate and did not rx, I recommended addition of phenergan NM but she told me she could not use suppositories while having diarrhea went home, had more vomiting, so she took her tramadol which did not help, did not take her phenergan or zofran, states zofran causes a gag reflex for her, so she came back to the ER Review of Systems Constitutional: reports: Sweats. denies: Fever Cardiac: reports: Chest pain / pressure (while in lobby waiting to be brought back to the ER - EKG s ischemia) GI: reports: Abdominal Pain, Nausea, Vomiting, Diarrhea. 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, Other : None HEENT: None Psych: Depression Musculoskeletal: None Derm: Other - Past Surgical History Past Surgical History: Yes General: Cholecystectomy HEENT: Tonsil/Adenoidectomy - Present Medications Home Medications: Ambulatory Orders Medication Instructions Recorded Confirmed Escitalopram Oxalate [Lexapro] 20 mg PO DAILY 11/23/15 10/11/16 Dicyclomine [Bentyl] 20 mg PO QID PRN #20 capsule 10/10/16 10/11/16 Alprazolam [Xanax] 0.5 mg PO BID #60 tablet 10/13/16 Cholecalciferol [Vitamin D3] 5,000 unit PO BID #60 capsule 10/13/16 Ciprofloxacin [Cipro] 250 mg PO Q12H #14 tablet 10/13/16 Gabapentin [Neurontin] 300 mg PO TID #90 capsule 10/13/16 Meloxicam [Mobic] 15 mg PO DAILY tablet 10/13/16 Meloxicam [Mobic] 15 mg PO DAILY #30 tablet 10/13/16 Metronidazole [Flagyl] 500 mg PO BID #14 tablet 10/13/16 Multivitamin W/Minerals [Theragran 1 tab PO DAILYWM #30 tablet 10/13/16 M] Nicotine 21 mg Patch [Nicoderm] 1 patch TOP DAILY #10 patch 10/13/16 [place]-3 Acid Ethyl Esters [Lovaza] 1 gm PO BID #60 capsule 10/13/16 Ondansetron Odt [Zofran Odt] 4 mg TL Q6H PRN #15 tablet 10/13/16 Promethazine [Phenergan] 25 - 50 mg PO Q6H PRN #15 tab 10/13/16 Saccharomyces Boulardii [Florastor] 250 mg PO BID #60 capsule 10/13/16 Sucralfate [Carafate] 1 gm PO QID #40 oral.susp 10/13/16 traMADol [Ultram] 100 mg PO Q6H PRN #60 tablet 10/13/16 Promethazine Supp [Phenergan Supp] 25 mg NM Q6H PRN #10 supp 10/16/16 - Allergies Allergies/Adverse Reactions: Allergies Allergy/AdvReac Type Severity Reaction Status Date / Time morphine AdvReac Emesis Verified 10/16/16 12:37 Sulfa (Sulfonamide AdvReac Respiratory Verified 10/16/16 12:37 Antibiotics) - Social History Does the pt smoke?: Yes Smoking Status: Current every day smoker Does the pt drink ETOH?: Yes Does the pt have substance abuse?: Yes - Immunizations Immunizations are current?: Yes - POLST Patient has POLST: No PD ED PE NORMAL - Vitals Vital signs reviewed: Yes (tachy hypertensive) - Neck Neck: Supple, no meningeal sign - Cardiac Cardiac: RRR - Respiratory Respiratory: No respiratory distress, Clear bilaterally - Abdomen Abdomen: Soft, Other (midl diffuse TTP s peritoneal signs) - Derm Derm: Other (little sweaty) - Neuro Neuro: Alert and oriented X 3 Results - Vitals Vitals: Vital Signs - 24 hr 10/16/16 10/16/16 12:35 16:12 Temperature 35.8 C L Heart Rate 118 H 100 Respiratory 20 20 Rate Blood Pressure 181/113 H 177/100 H O2 Saturation 100 100 Oxygen O2 Source Room air - EKG (time done) 1311 Rate: Rate (enter#) (91) Rhythm: NSR [place]: Normal Intervals: No: Prolonged QT QRS: Normal Ischemia: Normal ST segments PD MEDICAL DECISION MAKING - ED course ED course: pt wanted more dilaudid and phenergan I advised that dilaudid did not really help last time since she was back within hrs for same sx considered narcotic wdrawal as partial cause for sx since her suboxone was held during recent stay - but pt got dilaudid earlier and still having sx so feel this is less likely so explained will not be utilizing narcotics this visit though will try other modalities suggested haldol, pt reluctant but will try, gave 2.5 mg, ordered benadryl as well which pt refused citing it makes her itchy, so she got dystonic from the haldol, given ativan without relief, ordered vistaril IM which was out of stock , then gave vistaril PO with imporved dystonic sx also gave phenergan and ofirmev IV pt again requesting dilaudid, I again explained i do not think narcotics are appropriate in this clinical situation pt very upset and tearful and called the hospitalist on her cell phone to come to fast track to help her hospitalist came to ER to see the pt and then came to speak with me, she advised that pt did well with valium for mm cramps last inpt stay so will order that, also advised that she had recommended pt be on a steroid taper 2/2 hx UC and elev CRP so consider giving solumedrol IV which I did, that phenergan had worked well (already given) and that pt had improved with an IM cocktail of /[id number] - I am surprised because pt told me she cannot take benadryl and I advised i am still not thinking narcotics are appropriate and if dilaudid 2 mg did not help earlier I don't think 0.5 will pt thinks she needed to be admitted again - I spoke to the hospitalist and she advises that she has been down to evaluate the pt and that she does not meet criteria for admission at this time pt very angry and upset, states we are doing nothing to help her (after being given 2 L NS, IM haldol, IV phenergan, PO vistaril, PO ativan, IV valium, IV ofirmev, IV solumedrol) - that if we aren't going to give her dilaudid she is going to leave - and she pulled out her IV and left AMA pt was on tele after haldol and vistaril, no prolonged QT, NSR Departure - Departure Disposition: 07 Against Medical Advice Clinical Impression: Abdominal pain Condition: Fair Instructions: Abdominal Pain Prescriptions: Promethazine Supp [Phenergan Supp] 25 mg NM Q6H PRN #10 supp PRN Reason: vomiting Comments: Please take your medications as previously prescribed when you were discharged from the hospital. If you are vomiting and cannot keep pills down I suggest you try rectal phenergan instead or oral And please follow up with your PMD about your blood pressure - it was high today Discharge Date/Time: 10/16/16 19:56
[2016-10-16] MEDS ORDERED: ACETAMINOPHEN 1,000 MG/100 ML 100 ML IV STA (15:18)
[2016-10-16] MEDS ORDERED: LORazepam 0.5 MG TABLET PO STA (15:18)
[2016-10-16] MEDS ORDERED: PROMETHAZINE 25 MG/1 ML VIAL ONE (15:29)
[2016-10-16] MEDS ORDERED: SODIUM CHLORIDE 0.9% 50 ML IV ONE (15:29)
[2016-10-16] MEDS ORDERED: LORazepam 0.5 MG TABLET ONE (15:32)
[2016-10-16] MEDS ORDERED: hydrOXYzine PAMOATE 25 MG CAPSULE ONE (16:02)
[2016-10-16 16:13] VITALS: BP 177/100
[2016-10-16] MEDS ORDERED: hydrOXYzine PAMOATE 25 MG CAPSULE PO STA (16:18)
[2016-10-16] MEDS ORDERED: ACETAMINOPHEN 1,000 MG/100 ML 100 ML IV ONE (16:19)
[2016-10-16] MEDS ORDERED: diazePAM INJ 5 MG/ML SYRINGE IVP STA ×2 (16:28)
[2016-10-16] MEDS ORDERED: diazePAM 5 MG TABLET PO STA (16:28)
[2016-10-16] MEDS ORDERED: diazePAM INJ 5 MG/ML SYRINGE ONE (16:39)
[2016-10-16] MEDS ORDERED: diazePAM 5 MG TABLET PO ONE (16:40)
[2016-10-16] MEDS ORDERED: methylPREDNISolone SUCCINATE 125 MG/2 ML VIAL IVP STA (16:42)
[2016-10-16] MEDS ORDERED: methylPREDNISolone SUCCINATE 125 MG/2 ML VIAL IVP ONE (16:57)
[2016-10-16] MEDS ORDERED: traMADol 50 MG TABLET PO STA (17:26)
== END 2016-10-16 19:56 | disposition left against medical advice (07) ==
LOC: ED 12:31
DX: R10.13 Epigastric pain (principal); R11.2 Nausea with vomiting, unspecified; R19.7 Diarrhea, unspecified; Z87.19 Personal history of other diseases of the digestive system; J45.909 Unspecified asthma, uncomplicated; K21.9 Gastro-esophageal reflux disease without esophagitis; Z87.11 Personal history of peptic ulcer disease; F17.200 Nicotine dependence, unspecified, uncomplicated
CPT/HCPCS: 93005; 93010; 96372; 96374; 96375; 99283; 99284; A9270; J0131; J1170; J7040; Q0162; 80053; 83690; 85025

== ENCOUNTER 2016-10-19 10:21 | Emergency (ER) | payer MEDICAID ==
[2016-10-19 11:09] LABS: BILIRUBIN,URINE NEGATIVE (NEGATIVE); PH,URINE 6.5 PH (5.0-7.5)
[2016-10-19 11:12] LABS: HCG UR QUAL NEGATIVE; UA w/ MICROSCOPIC CHARGE YES
[2016-10-19 11:35] LABS: UR CULTURE IF IND NOT INDICATED; WBC,URINE 0-3 /HPF (0-5)
[2016-10-19] MEDS ORDERED: SODIUM CHLORIDE 0.9% 1,000 ML IV ONE (12:06)
[2016-10-19] MEDS ORDERED: PANTOPRAZOLE 40 MG VIAL IVP STA (12:07)
[2016-10-19] MEDS ORDERED: PROMETHAZINE INJ 25 MG in SODIUM CHLORIDE 0.9% 50 ML IV STA (12:07)
[2016-10-19] MEDS ORDERED: LIDOCAINE VISCOUS 2% 15 ML UDC MM STA (12:09)
[2016-10-19] MEDS ORDERED: SUCRALFATE 1 GM/10 ML UDC PO STA (12:09)
[2016-10-19] MEDS ORDERED: DEXAMETHASONE 10 MG/ML VIAL IVP STA (12:09)
[2016-10-19] MEDS ORDERED: MAG HYDROX/AL HYDROX/SIMETH 30 ML UDC PO STA (12:09)
--- NOTE | 2016-10-19 12:17 | ED Physician Documentation ---
PD HPI ABD PAIN - Stated complaint Stated Complaint: VOMITTING - Chief complaint Chief Complaint: Abd Pain - History obtained from History obtained from: Patient, Other (chart review) - Additional information Additional information: 2 weeks of upper abdominal pain, vomiting and severe nausea, more than diarrhea. She says this was similar to symptoms she had prior to her gallbladder removal last year. She was hospitalized and she's been seen several times for this in the last 2 weeks. She has had a ultrasound and CAT scan, notable only for a fatty liver. Labs have been relatively unremarkable except for some episodes of leukocytosis. Chart suggest this is related to cannabis hyperemesis syndrome and she admits this is only better when she takes a hot shower but says she hasn't used marijuana since her admission about a week ago. Review of the chart shows that her last visit was not friendly and she was persistently demanding injectable narcotics which were not administered. Review of Systems Constitutional: reports: Fatigue. denies: Fever, Chills Cardiac: denies: Chest pain / pressure, Palpitations Respiratory: denies: Dyspnea, Cough GI: reports: Abdominal Pain, Nausea, Vomiting, Diarrhea. 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, Other : None HEENT: None Psych: Depression Musculoskeletal: None Derm: Other - Past Surgical History Past Surgical History: Yes General: Cholecystectomy HEENT: Tonsil/Adenoidectomy - Present Medications Home Medications: Ambulatory Orders Medication Instructions Recorded Confirmed Escitalopram Oxalate [Lexapro] 20 mg PO DAILY 11/23/15 10/11/16 Dicyclomine [Bentyl] 20 mg PO QID PRN #20 capsule 10/10/16 10/11/16 Alprazolam [Xanax] 0.5 mg PO BID #60 tablet 10/13/16 Cholecalciferol [Vitamin D3] 5,000 unit PO BID #60 capsule 10/13/16 Ciprofloxacin [Cipro] 250 mg PO Q12H #14 tablet 10/13/16 Gabapentin [Neurontin] 300 mg PO TID #90 capsule 10/13/16 Meloxicam [Mobic] 15 mg PO DAILY tablet 10/13/16 Meloxicam [Mobic] 15 mg PO DAILY #30 tablet 10/13/16 Metronidazole [Flagyl] 500 mg PO BID #14 tablet 10/13/16 Multivitamin W/Minerals [Theragran 1 tab PO DAILYWM #30 tablet 10/13/16 M] Nicotine 21 mg Patch [Nicoderm] 1 patch TOP DAILY #10 patch 10/13/16 [place]-3 Acid Ethyl Esters [Lovaza] 1 gm PO BID #60 capsule 10/13/16 Ondansetron Odt [Zofran Odt] 4 mg TL Q6H PRN #15 tablet 10/13/16 Promethazine [Phenergan] 25 - 50 mg PO Q6H PRN #15 tab 10/13/16 Saccharomyces Boulardii [Florastor] 250 mg PO BID #60 capsule 10/13/16 Sucralfate [Carafate] 1 gm PO QID #40 oral.susp 10/13/16 traMADol [Ultram] 100 mg PO Q6H PRN #60 tablet 10/13/16 Promethazine Supp [Phenergan Supp] 25 mg TN Q6H PRN #10 supp 10/16/16 Metoclopramide [Reglan] 10 mg PO Q6H PRN #20 tablet 10/19/16 Omeprazole [PriLOSEC] 20 mg PO DAILY #14 capsule 10/19/16 Promethazine Supp [Phenergan Supp] 25 mg TN Q6HR PRN #15 supp 10/19/16 - Allergies Allergies/Adverse Reactions: Allergies Allergy/AdvReac Type Severity Reaction Status Date / Time morphine AdvReac Emesis Verified 10/19/16 10:29 Sulfa (Sulfonamide AdvReac Respiratory Verified 10/19/16 10:29 Antibiotics) - Social History Does the pt smoke?: Yes Smoking Status: Current every day smoker Does the pt drink ETOH?: Yes Does the pt have substance abuse?: Yes - Immunizations Immunizations are current?: Yes - POLST Patient has POLST: No PD ED PE NORMAL - Vitals Vital signs reviewed: Yes - General General: Alert and oriented X 3, No acute distress - HEENT HEENT: Moist mucous membranes - Abdomen Abdomen: Normal bowel sounds, Soft, Non tender - Neuro Neuro: Alert and oriented X 3, Normal speech - Psych Psych: Normal mood, Normal affect Results - Vitals Vitals: Vital Signs - 24 hr 10/19/16 10/19/16 10/19/16 10:26 11:33 12:57 Temperature 35.7 C L Heart Rate 90 108 H 83 Respiratory 14 20 18 Rate Blood Pressure 185/82 H 189/113 H 191/96 H O2 Saturation 100 98 99 10/19/16 14:08 Temperature Heart Rate 81 Respiratory 18 Rate Blood Pressure 154/94 H O2 Saturation 100 Oxygen O2 Source Room air - Labs Labs: Laboratory Tests 10/19/16 10/19/16 10/19/16 10:50 10:55 12:25 Sodium 134 L Potassium 3.4 L Chloride 99 L Carbon Dioxide 23 Anion Gap 12.0 BUN 12 Creatinine 0.7 Estimated GFR (MDRD) 98 Glucose 123 H Calcium 8.8 Total Bilirubin 0.8 AST 55 H ALT 69 H Alkaline Phosphatase 91 Total Protein 7.8 Albumin 4.8 Globulin 3.0 Albumin/Globulin Ratio 1.6 Lipase 33 Urine Color YELLOW Urine Clarity HAZY Urine pH 6.5 Ur Specific [place] 1.020 Urine Protein TRACE Urine Glucose (UA) NEGATIVE Urine Ketones TRACE Urine Occult Blood MODERATE H Urine Nitrite NEGATIVE Urine Bilirubin NEGATIVE Urine Urobilinogen 0.2 (NORMAL) Ur Leukocyte Esterase NEGATIVE Urine RBC 0-5 Urine WBC 0-3 Ur Squamous Epith Cells FEW Squamous Amorphous Sediment Few Urine Bacteria None Seen Ur Microscopic Review INDICATED Urine Culture Comments NOT INDICATED Urine HCG, Qual NEGATIVE Urine Opiates Screen NEGATIVE Ur Oxycodone Screen NEGATIVE Urine Methadone Screen NEGATIVE Ur Propoxyphene Screen NEGATIVE Ur Barbiturates Screen NEGATIVE Ur Tricyclics Screen NEGATIVE Ur Phencyclidine Scrn NEGATIVE Ur Amphetamine Screen NEGATIVE U Methamphetamines Scrn NEGATIVE U Benzodiazepines Scrn POSITIVE H Urine Cocaine Screen NEGATIVE U Cannabinoids Screen POSITIVE H PD MEDICAL DECISION MAKING - ED course ED course: This 30-year-old woman now has almost subacute exacerbation of cyclic vomiting syndrome versus cannabis hyperemesis syndrome. There is no evidence of an emergency medical condition and despite her complaints she seems well-hydrated and comfortable, and has a nontender abdominal examination. I discussed with her that based on recent interactions I would not prescribe injectable narcotics , she says they help a lot, at the end of her initial evaluation I agree that if her drug screen was negative for marijuana we would consider it. Initially though she is treated with other modalities which have helped in the past including injectable steroid, fluids, Phenergan, GI cocktail, Carafate, and Protonix. She improved stepwise medications and was also administered oral oxycodone, she was understanding that I am not giving her injectable narcotics. She tolerated oral fluids and soup very well. Departure - Departure Disposition: 01 Home, Self Care Clinical Impression: Vomiting, Abdominal pain Condition: Good Record reviewed to determine appropriate education?: Yes Instructions: Abdominal Pain Prescriptions: Promethazine Supp [Phenergan Supp] 25 mg TN Q6HR PRN #15 supp PRN Reason: Nausea / Vomiting Omeprazole [PriLOSEC] 20 mg PO DAILY #14 capsule Metoclopramide [Reglan] 10 mg PO Q6H PRN #20 tablet PRN Reason: Nausea / Vomiting Comments: Call your doctor to arrange a follow up appointment. Make the next available appointment. In the interim return anytime if worse or if new symptoms develop. Your blood pressure was elevated today on check in to the emergency department. This does not mean that you have hypertension, it is a common phenomenon to check into the emergency department and have elevated blood pressure. I recommend that you see your primary care physician within the week to have it rechecked when you're feeling better.
[2016-10-19] MEDS ORDERED: SUCRALFATE 1 GM/10 ML UDC ONE (12:30)
[2016-10-19] MEDS ORDERED: LIDOCAINE VISCOUS 2% 15 ML UDC MM ONE (12:30)
[2016-10-19] MEDS ORDERED: PROMETHAZINE 25 MG/1 ML VIAL ONE (12:30)
[2016-10-19] MEDS ORDERED: MAG HYDROX/AL HYDROX/SIMETH 30 ML UDC ONE (12:30)
[2016-10-19] MEDS ORDERED: PANTOPRAZOLE 40 MG VIAL ONE (12:30)
[2016-10-19] MEDS ORDERED: DEXAMETHASONE 10 MG/ML VIAL ONE (12:30)
[2016-10-19 13:05] LABS: ALBUMIN/GLOBULIN RATIO 1.6 (1.0-2.2); BILIRUBIN,TOTAL 0.8 mg/dL (0.2-1.0); CALCIUM 8.8 mg/dL (8.5-10.3); CREATININE 0.7 mg/dL (0.4-1.0); POTASSIUM 3.4 mmol/L (3.5-5.0); TOTAL PROTEIN 7.8 g/dL (6.7-8.2)
[2016-10-19] MEDS ORDERED: oxyCODONE 5 MG TABLET PO STA ×2 (13:16→14:25)
[2016-10-19] MEDS ORDERED: DICYCLOMINE 10 MG CAPSULE PO STA (13:33)
[2016-10-19] MEDS ORDERED: oxyCODONE 5 MG TABLET ONE ×2 (13:37→14:45)
[2016-10-19] MEDS ORDERED: DICYCLOMINE 10 MG CAPSULE PO ONE (13:53)
[2016-10-19 14:08] VITALS: BP 154/94
--- NOTE | 2016-10-19 15:12 | ED Physician Documentation ---
ED Addendum - Addendum Addendum: 10/19/16 15:12 unscheduled return visit - chart accessed for follow up and educational purposes
== END 2016-10-19 14:49 | disposition home or self-care (01) ==
LOC: ED 10:21
DX: R10.10 Upper abdominal pain, unspecified (principal); R11.2 Nausea with vomiting, unspecified; R19.7 Diarrhea, unspecified; R03.0 Elevated blood-pressure reading, without diagnosis of hypertension; K21.9 Gastro-esophageal reflux disease without esophagitis; Z87.11 Personal history of peptic ulcer disease; Z90.49 Acquired absence of other specified parts of digestive tract; F17.200 Nicotine dependence, unspecified, uncomplicated
CPT/HCPCS: 36415; 80053; 80306; 81001; 81025; 83690; 96365; 96375; 99283; 99284; A9270; 81003; 87086

== ENCOUNTER 2017-07-28 12:43 | Emergency (ER) | payer MEDICAID ==
[2017-07-28] MEDS ORDERED: KETOROLAC 60 MG/2 ML VIAL IVP STA (14:32)
[2017-07-28] MEDS ORDERED: ONDANSETRON 4 MG/2 ML VIAL IVP STA (14:32)
[2017-07-28] MEDS ORDERED: SODIUM CHLORIDE 0.9% 1,000 ML IV ONE (14:32)
--- NOTE | 2017-07-28 14:35 | ED Physician Documentation ---
PD HPI ABD PAIN - Stated complaint Stated Complaint: DIARRHEA,ABD PAIN - Chief complaint Chief Complaint: Abd Pain - History obtained from History obtained from: Patient - History of Present Illness Timing - onset: Last night Timing - details: Still present Quality: Cramping Location: All over / everywhere Associated symptoms: Nausea, Diarrhea. No: Fever, Vomiting, Dysuria Similar symptoms before: Diagnosis (Reports similar symptoms when she had food poisoning 2 years ago.) - Additional information Additional information: The patient is a 31-year-old female who presents with diarrhea that started suddenly about 1:30 this morning. She has had about 8 episodes of watery diarrhea since that time. She reports associated cramping abdominal pain. She reports nausea, without vomiting. She denies fever or dysuria. Her last menstrual period was about 1 week ago. She had similar symptoms with food poisoning about 2 years ago, but that was after eating sushi, and she has not had any sushi since that time. She denies any recent travel. No other family members are ill. Past medical history is significant for ulcerative colitis. She is status post cholecystectomy. Review of Systems Constitutional: reports: Fatigue. denies: Fever Nose: denies: Congestion Throat: denies: Sore throat Cardiac: denies: Chest pain / pressure Respiratory: denies: Dyspnea, Cough GI: reports: Abdominal Pain, Nausea, Diarrhea. denies: Vomiting : reports: LMP (1 week ago). 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, Other : None, Other (Ulcerative colitis) HEENT: None Psych: Depression Musculoskeletal: None Derm: Other - Past Surgical History Past Surgical History: Yes General: Cholecystectomy HEENT: Tonsil/Adenoidectomy - Present Medications Home Medications: Ambulatory Orders Medication Instructions Recorded Confirmed Ondansetron Odt [Zofran Odt] 4 mg TL Q6H PRN #15 tablet 10/13/16 07/28/17 Promethazine [Phenergan] 25 - 50 mg PO Q6H PRN #15 tab 10/13/16 07/28/17 Sucralfate [Carafate] 1 gm PO QID #40 oral.susp 10/13/16 07/28/17 - Allergies Allergies/Adverse Reactions: Allergies Allergy/AdvReac Type Severity Reaction Status Date / Time Sulfa (Sulfonamide AdvReac Respiratory Verified 07/28/17 14:01 Antibiotics) - Social History Does the pt smoke?: Yes Smoking Status: Current every day smoker Does the pt drink ETOH?: Yes Does the pt have substance abuse?: Yes - Immunizations Immunizations are current?: Yes - POLST Patient has POLST: No PD ED PE NORMAL - Vitals Vital signs reviewed: Yes (Tachycardic and hypertensive.) - General General: Alert and oriented X 3, Well developed/nourished, Other (Appears miserable.) - HEENT HEENT: Atraumatic, EOMI, Moist mucous membranes, Pharynx benign - Neck Neck: Supple, no meningeal sign, No adenopathy - Cardiac Cardiac: No murmur, Other (Slightly rapid rate, regular rhythm.) - Respiratory Respiratory: No respiratory distress, Clear bilaterally - Abdomen Abdomen: Soft, Non tender, No organomegaly - Back Back: No CVA TTP - Derm Derm: No rash - Extremities Extremities: No edema, No calf tenderness / cord - Neuro Neuro: Alert and oriented X 3, No motor deficit, Normal speech Results - Vitals Vitals: Oxygen O2 Source Room air - Labs Labs: Laboratory Tests 07/28/17 07/28/17 15:51 15:51 WBC 9.0 RBC 4.89 Hgb 13.6 Hct 40.8 MCV 83.4 MCH 27.7 MCHC 33.3 RDW 13.6 Plt Count 194 MPV 7.8 L Neut # 6.2 Lymph # 2.2 [place] # 0.4 Eos # 0.1 Baso # 0.0 Absolute Nucleated RBC 0.00 Nucleated RBC % 0.0 Sodium 138 Potassium 4.2 Chloride 106 Carbon Dioxide 22 Anion Gap 10.0 BUN 6 Creatinine 0.7 Estimated GFR (MDRD) 98 Glucose 99 Calcium 9.0 Total Bilirubin < 0.2 L AST 21 ALT 17 Alkaline Phosphatase 64 Total Protein 7.5 Albumin 4.1 Globulin 3.4 Albumin/Globulin Ratio 1.2 Lipase 17 L PD MEDICAL DECISION MAKING - ED course Complexity details: reviewed results, re-evaluated patient, considered differential, d/w patient ED course: The patient's presentation is most consistent with gastroenteritis with diarrhea and mild dehydration. Her abdomen is benign on examination, and her presentation does not suggest diverticulitis, ulcerative colitis, or an acute abdomen. Treatment in the emergency department included administration of normal saline 1 L IV, ketorolac 30 mg IV, and Zofran 4 mg IV. She persisted in her request for something stronger for nausea and discomfort. Her IV, which was difficult to place initially, infiltrated, so Phenergan 12.5 mg was administered IM. In addition hydromorphone 0.5 mg was administered IM 2. Prior to discharge, Percocet 1 tablet was administered orally. I discussed with her the expected course of illness, symptomatic treatment and outpatient follow-up, as well as potentially worrisome signs or symptoms that should prompt reevaluation in the emergency department. Departure - Departure Disposition: 01 Home, Self Care Clinical Impression: Diarrhea, Gastroenteritis Condition: Stable Instructions: ED Gastroenteritis Viral Follow-Up: Amanda Mckeon MD [Primary Care Provider] - Comments: Drink plenty of fluids. You can use previously prescribed promethazine or Zofran if needed for recurrent nausea. Follow up with your primary physician within 1-2 weeks. Call to schedule appointment. Return to the emergency department if you develop increasing abdominal pain, persistent vomiting, dehydration, or otherwise worsening symptoms. Discharge Date/Time: 07/28/17 17:47
[2017-07-28] MEDS ORDERED: PROMETHAZINE INJ 12.5 MG in SODIUM CHLORIDE 0.9% 50 ML IV STA (15:43)
[2017-07-28] MEDS ORDERED: HYDROmorphone 1 MG/ML SYRINGE IVP STA ×2 (15:47→17:23)
[2017-07-28 15:55] LABS: BASOPHILS % (AUTO) 0.4 %; EOSINOPHILS # (AUTO) 0.1 10^3/uL (0.0-0.7); EOSINOPHILS % (AUTO) 0.9 %; HGB - HEMOGLOBIN 13.6 g/dL (12.0-16.0); LYMPHOCYTES # (AUTO) 2.2 10^3/uL (1.5-3.5); LYMPHOCYTES % (AUTO) 24.9 %; MEAN CORPUSCULAR HEMOGLOBIN 27.7 pg (27.0-31.0); MEAN CORPUSCULAR HGB CONC 33.3 g/dL (32.0-36.0); MEAN CORPUSCULAR VOLUME 83.4 fL (81.0-99.0); MEAN PLATELET VOLUME 7.8 fL (7.9-10.8); MONOCYTES # (AUTO) 0.4 10^3/uL (0.0-1.0); MONOCYTES % (AUTO) 4.5 %; NEUTROPHILS # (AUTO) 6.2 10^3/uL (1.5-6.6); NEUTROPHILS % (AUTO) 69.3 %; PLT - PLATELET COUNT 194 10^3/uL (130-450); RED BLOOD COUNT 4.89 10^6/uL (4.20-5.40); RED CELL DISTRIBUTION WIDTH 13.6 % (12.0-15.0)
[2017-07-28] MEDS ORDERED: HYDROmorphone 1 MG/ML SYRINGE IM STA (16:00)
[2017-07-28] MEDS ORDERED: PROMETHAZINE 25 MG/1 ML VIAL IM STA (16:01)
[2017-07-28 16:07] LABS: ALBUMIN 4.1 g/dL (3.2-5.5); ALBUMIN/GLOBULIN RATIO 1.2 (1.0-2.2); ALKALINE PHOSPHATASE 64 IU/L (42-121); ALT ALANINE AMINOTRANSFERASE 17 IU/L (10-60); AST ASPARTATE AMINOTRANSFERASE 21 IU/L (10-42); BILIRUBIN,TOTAL < 0.2 mg/dL (0.2-1.0); BUN - BLOOD UREA NITROGEN 6 mg/dL (6-20); CARBON DIOXIDE - CO2 22 mmol/L (21-32); CHLORIDE 106 mmol/L (101-111); CREATININE 0.7 mg/dL (0.4-1.0); GFR - MDRD 98 (>89); GLUCOSE 99 mg/dL (70-100); LIPASE 17 U/L (22-51); SODIUM 138 mmol/L (135-145); TOTAL PROTEIN 7.5 g/dL (6.7-8.2)
[2017-07-28] MEDS ORDERED: HYDROcod/ACETAM 5/325 MG TABLET PO STA (17:23)
[2017-07-28 17:34] VITALS: BP 114/79
[2017-07-28] MEDS ORDERED: oxyCOD/ACETAMIN 5 MG/325 MG TABLET PO STA (17:38)
== END 2017-07-28 17:47 | disposition home or self-care (01) ==
LOC: ED 12:43
DX: K52.9 Noninfective gastroenteritis and colitis, unspecified (principal); F17.200 Nicotine dependence, unspecified, uncomplicated
CPT/HCPCS: 36415; 80053; 83690; 85025; 96361; 96372; 96374; 96375; 99283; 99284; A9270; J1170

== ENCOUNTER 2017-10-12 21:01 | Emergency (ER) | payer MEDICAID ==
--- NOTE | 2017-10-12 21:45 | ED Physician Documentation ---
PD HPI HEENT - Stated complaint Stated Complaint: MOUTH INJURY - Chief complaint Chief Complaint: Heent - History obtained from History obtained from: Patient - History of Present Illness Timing - onset: Today Timing - duration: Hours (1) Timing - details: Abrupt onset Location: Mouth ( ahw tripped and fell, striking left mouth, with bleeding from upper and lower gums. This is taperd down dionte just mild oozing of blood. She notes a flap of tissue hanging down on left, so here for eval, if it needs sutures.) Associated symptoms: No: Congestion, Unable to swallow, Swollen nodes Review of Systems Throat: reports: Oral lesions / sores. 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, Other : None, Other HEENT: None Psych: Depression Musculoskeletal: None Derm: Other - Past Surgical History Past Surgical History: Yes General: Cholecystectomy HEENT: Tonsil/Adenoidectomy - Present Medications Home Medications: Ambulatory Orders Medication Instructions Recorded Confirmed Ondansetron Odt [Zofran Odt] 4 mg TL Q6H PRN #15 tablet 10/13/16 07/28/17 Promethazine [Phenergan] 25 - 50 mg PO Q6H PRN #15 tab 10/13/16 07/28/17 Sucralfate [Carafate] 1 gm PO QID #40 oral.susp 10/13/16 07/28/17 Oxycodone HCl/Acetaminophen 1 each PO Q6H PRN #15 tablet 10/12/17 [Percocet 5-325 mg Tablet] - Allergies Allergies/Adverse Reactions: Allergies Allergy/AdvReac Type Severity Reaction Status Date / Time Sulfa (Sulfonamide AdvReac Respiratory Verified 07/28/17 14:01 Antibiotics) - Social History Does the pt smoke?: Yes Smoking Status: Current every day smoker Does the pt drink ETOH?: Yes Does the pt have substance abuse?: Yes - Immunizations Immunizations are current?: Yes - POLST Patient has POLST: No PD ED PE NORMAL - Vitals Vital signs reviewed: Yes - General General: Alert and oriented X 3, Well developed/nourished, Other (appears in some pain with swelling of left upper and lower lip. No noted loose teeth. There is flap of tissue mucosal hanging down on left upper lip, does not cross abby border. ) - HEENT HEENT: Atraumatic, Moist mucous membranes, Dentition benign - Neck Neck: Supple, no meningeal sign, No bony TTP, No adenopathy - Cardiac Cardiac: RRR, No murmur - Respiratory Respiratory: Clear bilaterally - Derm Derm: Normal color, Warm and dry - Neuro Neuro: Alert and oriented X 3, transportation aide 2-12 intact, No motor deficit, No sensory deficit, Normal speech Results - Vitals Vitals: Oxygen O2 Source Room air Procedures - Laceration (location) left upper lip Length in cm: 1 Wound type: Flap (does not cross abby border), Into subcut fat (of the lip ), Clean. No: Irregular Neurovascular status: No: Sensory intact, Motor intact Anesthesia: Lidocaine 2% with epi (infraorbital nerve block with good results.) Deep layer closure: Vicryl, size #-0 - enter number (6), # sutures - enter number (2) Other: Patient tolerated well, No complications PD MEDICAL DECISION MAKING - ED course Complexity details: considered differential (the lower lip mild lac is okay; upper lip with flap of mucosal that is dangling down. It needs tacking suture for good cosmesis. ), d/w patient Departure - Departure Disposition: 01 Home, Self Care Clinical Impression: Fall from slip, trip, or stumble Qualifiers: Encounter type: initial encounter Qualified Code(s): W01.0XXA - Fall on same level from slipping, tripping and stumbling without subsequent striking against object, initial encounter Lip laceration Qualifiers: Encounter type: initial encounter Qualified Code(s): S01.511A - Laceration without foreign body of lip, initial encounter Condition: Stable Record reviewed to determine appropriate education?: Yes Instructions: ED Laceration Mouth Follow-Up: Amanda Mckeon MD [Primary Care Provider] - Prescriptions: Oxycodone HCl/Acetaminophen [Percocet 5-325 mg Tablet] 1 each PO Q6H PRN #15 tablet PRN Reason: Pain Comments: Cleanse the area with peroxide and water to 3 times a day. The stitches in the lip will dissolve over time. Tylenol if needed for pains. Recheck if signs of infection. Ice to the area periodically tonight and tomorrow to reduce swelling. Discharge Date/Time: 10/12/17 22:47
[2017-10-12] MEDS ORDERED: HYDROcod/ACETAM 5/325 MG TABLET PO STA (21:50)
[2017-10-12] MEDS ORDERED: oxyCOD/ACETAMIN 5 MG/325 MG TABLET PO STA (22:28)
[2017-10-12 22:47] VITALS: BP 138/68
== END 2017-10-12 22:47 | disposition home or self-care (01) ==
LOC: ED 21:01
DX: S01.511A Laceration without foreign body of lip, initial encounter (principal); W01.198A Fall on same level from slipping, tripping and stumbling with subsequent striking against other object, initial encounter; J45.909 Unspecified asthma, uncomplicated; K21.9 Gastro-esophageal reflux disease without esophagitis; Z87.11 Personal history of peptic ulcer disease; F17.200 Nicotine dependence, unspecified, uncomplicated
CPT/HCPCS: 12011; 99283; A9270

== ENCOUNTER 2017-11-26 11:43 | Outpatient (CLI) | payer MEDICAID ==
[2017-11-26 19:07] LABS: BASOPHILS % (AUTO) 0.4 %; EOSINOPHILS # (AUTO) 0.1 10^3/uL (0.0-0.7); EOSINOPHILS % (AUTO) 1.4 %; HGB - HEMOGLOBIN 14.8 g/dL (12.0-16.0); LYMPHOCYTES # (AUTO) 2.2 10^3/uL (1.5-3.5); LYMPHOCYTES % (AUTO) 25.2 %; MEAN CORPUSCULAR HEMOGLOBIN 28.1 pg (27.0-31.0); MEAN CORPUSCULAR HGB CONC 32.4 g/dL (32.0-36.0); MEAN CORPUSCULAR VOLUME 86.7 fL (81.0-99.0); MONOCYTES # (AUTO) 0.5 10^3/uL (0.0-1.0); MONOCYTES % (AUTO) 5.4 %; NEUTROPHILS # (AUTO) 5.9 10^3/uL (1.5-6.6); NEUTROPHILS % (AUTO) 67.6 %; RED BLOOD COUNT 5.28 10^6/uL (4.20-5.40); RED CELL DISTRIBUTION WIDTH 13.9 % (12.0-15.0); WHITE BLOOD COUNT 8.7 x10^3/uL (4.8-10.8)
[2017-11-26 19:24] LABS: HEMOGLOBIN A1C 0.66 g/dL; HEMOGLOBIN A1C % 5.7 % (4.6-6.2)
[2017-11-26 19:29] LABS: ALBUMIN 4.5 g/dL (3.2-5.5); ALBUMIN/GLOBULIN RATIO 1.5 (1.0-2.2); ALKALINE PHOSPHATASE 59 IU/L (42-121); ALT ALANINE AMINOTRANSFERASE 20 IU/L (10-60); AST ASPARTATE AMINOTRANSFERASE 24 IU/L (10-42); BILIRUBIN,TOTAL 0.4 mg/dL (0.2-1.0); BUN - BLOOD UREA NITROGEN 9 mg/dL (6-20); CALCIUM 9.5 mg/dL (8.5-10.3); CARBON DIOXIDE - CO2 21 mmol/L (21-32); CHLORIDE 103 mmol/L (101-111); CHOL/HDL RATIO 4.6 (<4.4); CHOLESTEROL 228 mg/dL; CREATININE 0.8 mg/dL (0.4-1.0); GFR - MDRD 83 (>89); GLUCOSE 114 mg/dL (70-100); HDL CHOLESTEROL 50 mg/dL; LDL CHOLESTEROL,CALCULATED 114 mg/dL; LDL/HDL RATIO 2.3 (<4.4); SODIUM 136 mmol/L (135-145); TOTAL PROTEIN 7.6 g/dL (6.7-8.2); VLDL CHOLESTEROL 64 mg/dL
[2017-11-26 20:08] LABS: PLATELET ESTIMATE, MANUAL NORMAL (130-450,000) (NORMAL); PLATELET MORPHOLOGY PLATELET CLUMPING (NORMAL)
[2017-11-27 13:11] LABS: HEPATITIS C ANTIBODY NON-REACTIVE (NON-REACTIVE)
[2017-11-27 15:40] LABS: HIV AG/AB 4TH GEN NON-REACTIVE (NON-REACTIVE)
[2017-11-28 10:37] LABS: HSV 1 IGG TYPE SPECIFIC AB <0.90 index; HSV 2 IGG TYPE SPECIFIC AB 4.23 index
== END 2017-11-26 11:44 | disposition home or self-care (01) ==
LOC: LAB.WCP 11:43
PROVIDERS: ATTEND Family Medicine
DX: Z00.00 Encounter for general adult medical examination without abnormal findings (principal); Z11.3 Encounter for screening for infections with a predominantly sexual mode of transmission
CPT/HCPCS: 36415; 80053; 80061; 81599; 83036; 83721; 84443; 85025; 86695; 86696; 86803; 87389

== ENCOUNTER 2018-02-27 10:30 | Emergency (ER) | payer MEDICAID ==
--- NOTE | 2018-02-27 11:35 | XRAY Report ---
Reason: crush inury to left hand. Procedure Date: 02/27/2018 Accession Number: [id number] / [id number] Procedure: XR - Hand 3 View LT CPT Code: FULL RESULT: EXAM: LEFT HAND RADIOGRAPHY EXAM DATE: 02/27/2018 11:01 AM. CLINICAL HISTORY: Crush inury to left hand. COMPARISON: None. TECHNIQUE: 3 views. FINDINGS: Bones: Nondisplaced third middle phalanx diaphysis fracture extends into the distal metaphysis Joints: Normal. No subluxations. Soft Tissues: Normal. No soft tissue swelling. IMPRESSION: Nondisplaced third middle phalanx diaphysis fracture extends into the distal metaphysis RADIA
--- NOTE | 2018-02-27 11:52 | ED Physician Documentation ---
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 Pain and swelling with bruising of it. Worse today. Also has had left upper tooth pain at one recently broken off. Some swelling of gum. [facility] did not have appt for couple of months.) Where injury occurred: Home Timing - onset: Last night Timing - details: Abrupt onset Improved by: Immobilization Worsened by: Moving, Palpating Associated symptoms: Swelling, Discolored (bruised). 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, Other : None, Other HEENT: None Psych: Depression Musculoskeletal: None Derm: Other - Past Surgical History Past Surgical History: Yes General: Cholecystectomy HEENT: Tonsil/Adenoidectomy - Present Medications Home Medications: Ambulatory Orders Medication Instructions Recorded Confirmed Ondansetron Odt [Zofran Odt] 4 mg TL Q6H PRN #15 tablet 10/13/16 07/28/17 Promethazine [Phenergan] 25 - 50 mg PO Q6H PRN #15 tab 10/13/16 07/28/17 Sucralfate [Carafate] 1 gm PO QID #40 oral.susp 10/13/16 07/28/17 Oxycodone HCl/Acetaminophen 1 each PO Q6H PRN #15 tablet 10/12/17 [Percocet 5-325 mg Tablet] Cephalexin [Keflex] 500 mg PO TID #15 capsule 02/27/18 oxyCODONE [Roxicodone] 5 mg PO Q4-6H PRN #15 tablet 02/27/18 - Allergies Allergies/Adverse Reactions: Allergies Allergy/AdvReac Type Severity Reaction Status Date / Time Sulfa (Sulfonamide AdvReac Respiratory Verified 02/27/18 10:50 Antibiotics) - Social History Does the pt smoke?: Yes Smoking Status: Current every day smoker Does the pt drink ETOH?: Yes Does the pt have substance abuse?: Yes - Immunizations Immunizations are current?: Yes - POLST Patient has POLST: No PD ED PE NORMAL - Vitals Vital signs reviewed: Yes - General General: Alert and oriented X 3, No acute distress, Well developed/nourished - HEENT HEENT: Pharynx benign. No: Dentition benign (broken tooth left upper incisor with cup shaped defect. Mild swelling of gum. No fluctuance nor drainage. ) - Neck Neck: Supple, no meningeal sign, No adenopathy - Extremities Extremities: Other (left middle finger with swelling and bruising, tender, and limited ROM but can flex and extend some. Normal sensation at time. No damage to nailbed. ) Results - Vitals Vitals: Vital Signs - 24 hr 02/27/18 10:47 Temperature 36.5 C Heart Rate 110 H Respiratory 16 Rate Blood Pressure 151/112 H O2 Saturation 99 Oxygen O2 Source Room air - Rads (name of study) left middle finger Radiology: Prelim report reviewed, EMP read contemporaneously (fracture distal part of middle phalanx. Nondisplaced. ) PD MEDICAL DECISION MAKING - ED course Complexity details: reviewed results (The patient was shown her x-ray. A finger splint was applied by the tech. The swelling and bruising going down will decrease the pain the most and then the fracture itself will take several weeks to heal. For the tooth, the shape of it was amenable to temporary filling and applied some. There may be an early infection to it with mild swelling. Will prescribe some antibiotics. She does have history of significant gastritis and ulcer so cannot take NSAIDs and states she is nauseated by codeine and hydrocodone. She states oxycodone is the only pain medicine she can take tolerably. She is on the emergency list at [facility] to try to get her tooth fixed sooner.), considered differential, d/w patient Departure - Departure Disposition: 01 Home, Self Care Clinical Impression: Pain due to dental caries Crush injury to finger Qualifiers: Encounter type: initial encounter Qualified Code(s): S67.10XA - Crushing injury of unspecified finger(s), initial encounter Finger fracture Qualifiers: Encounter type: initial encounter Finger: middle finger Fracture type: closed Phalanx: middle Fracture alignment: nondisplaced Laterality: left Qualified Code(s): S62.653A - Nondisplaced fracture of middle phalanx of left middle finger, initial encounter for closed fracture Condition: Stable Record reviewed to determine appropriate education?: Yes Instructions: ED Fx Finger Closed Follow-Up: [facility] [Provider Group] Prescriptions: Cephalexin [Keflex] 500 mg PO TID #15 capsule oxyCODONE [Roxicodone] 5 mg PO Q4-6H PRN #15 tablet PRN Reason: Pain Print Language: Syriac Comments: Use the finger splint for the finger for the next 3-4 weeks. The worst pain of this will be the first several days as the swelling and bruising decrease. Ice elevate and rest the finger often. Progress use of it as able with gentle range of motion a couple of times a day. Follow-up with orthopedics or your primary care in about 2 weeks, call Thursday for an appointment. The follow-up on this is to ensure its healing well during the course of healing and it does not need any other interventions. For the tooth, leave the temporary filling in place. Follow-up with [facility] clinic for more definitive care of the tooth. Cephalexin antibiotic for possible early infection. You can also use topical numbing such as benzocaine which is [id number]. Oxycodone as needed for pains. Discharge Date/Time: 02/27/18 12:28
[2018-02-27] MEDS ORDERED: cephALEXin 250 MG CAPSULE PO STA (12:10)
[2018-02-27] MEDS ORDERED: oxyCODONE 5 MG TABLET PO STA (12:10)
[2018-02-27 12:28] VITALS: BP 136/71
== END 2018-02-27 12:28 | disposition home or self-care (01) ==
LOC: ED 10:30
DX: S67.193A Crushing injury of left middle finger, initial encounter (principal); S62.653A Nondisplaced fracture of middle phalanx of left middle finger, initial encounter for closed fracture; W20.8XXA Other cause of strike by thrown, projected or falling object, initial encounter; Y93.89 Activity, other specified; Y92.009 Unspecified place in unspecified non-institutional (private) residence as the place of occurrence of the external cause; K02.9 Dental caries, unspecified; F17.200 Nicotine dependence, unspecified, uncomplicated
CPT/HCPCS: 73130; 99283; A9270

== ENCOUNTER 2018-12-22 13:00 | Emergency (ER) | payer MEDICAID, OTHER ==
[2018-12-22 13:08] VITALS: BP 159/101
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
== END 2018-12-22 14:30 | disposition home or self-care (01) ==
LOC: ED 13:00
DX: S09.90XA Unspecified injury of head, initial encounter (principal); Y04.2XXA Assault by strike against or bumped into by another person, initial encounter; F17.200 Nicotine dependence, unspecified, uncomplicated
CPT/HCPCS: 70450; 70486; 99282; 99284

== ENCOUNTER 2019-05-17 13:29 | Emergency (ER) | payer MEDICAID, OTHER ==
[2019-05-17 13:59] LABS: BILIRUBIN,URINE NEGATIVE (NEGATIVE); GLUCOSE, URINE (UA) NEGATIVE (NEGATIVE); KETONES,URINE (UA) NEGATIVE (NEGATIVE); LEUKOCYTE ESTERASE, URINE NEGATIVE (NEGATIVE); NITRITE,URINE NEGATIVE (NEGATIVE); OCCULT BLOOD,URINE NEGATIVE (NEGATIVE); PROTEIN,URINE NEGATIVE (NEGATIVE); UROBILINOGEN,URINE 0.2 (NORMAL) E.U./dL (NORMAL)
[2019-05-17 14:01] LABS: CLARITY,URINE CLEAR (CLEAR); HCG UR QUAL NEGATIVE
[2019-05-17] MEDS ORDERED: SODIUM CHLORIDE 0.9% 1,000 ML IV ONE (14:44)
[2019-05-17] MEDS ORDERED: ONDANSETRON 4 MG/2 ML VIAL IVP STA (14:44)
[2019-05-17] MEDS ORDERED: MAG HYDROX/AL HYDROX/SIMETH 30 ML UDC PO STA (14:44)
[2019-05-17] MEDS ORDERED: LIDOCAINE VISCOUS 2% 15 ML UDC MM STA (14:44)
[2019-05-17] MEDS ORDERED: LOPERAMIDE 2 MG CAPSULE PO STA (14:44)
[2019-05-17] MEDS ORDERED: DICYCLOMINE 10 MG CAPSULE PO STA (14:44)
--- NOTE | 2019-05-17 14:47 | ED Physician Documentation ---
PD HPI ABD PAIN - Stated complaint Stated Complaint: FLU LIKE SX - Chief complaint Chief Complaint: Abd Pain - History obtained from History obtained from: Patient (33-year-old woman with history of chronic gastritis presents with an acute illness starting midday yesterday with upper abdominal pain, vomiting and diarrhea. No fevers or chills. No blood from either end. As a side note she requests refills of her antidepressant and control pending PCP follow-up.) Review of Systems Constitutional: denies: Fever, Chills, Myalgias, Fatigue Nose: denies: Rhinorrhea / runny nose, Congestion Cardiac: denies: Chest pain / pressure, Palpitations Respiratory: denies: Dyspnea PD PAST MEDICAL HISTORY - Past Medical History Cardiovascular: None Respiratory: Asthma Neuro: None Endocrine/Autoimmune: None GI: GERD, Ulcers AQUACULTURIST: Ovarian cysts, Other : None, Other HEENT: None Psych: Depression Musculoskeletal: None Derm: Other - Past Surgical History Past Surgical History: Yes General: Cholecystectomy HEENT: Tonsil/Adenoidectomy - Present Medications Home Medications: Ambulatory Orders Medication Instructions Recorded Confirmed Ondansetron Odt [Zofran Odt] 4 mg TL Q6H PRN #15 tablet 10/13/16 07/28/17 Promethazine [Phenergan] 25 - 50 mg PO Q6H PRN #15 tab 10/13/16 07/28/17 Sucralfate [Carafate] 1 gm PO QID #40 oral.susp 10/13/16 07/28/17 Oxycodone HCl/Acetaminophen 1 each PO Q6H PRN #15 tablet 10/12/17 [Percocet 5-325 mg Tablet] Cephalexin [Keflex] 500 mg PO TID #15 capsule 02/27/18 oxyCODONE [Roxicodone] 5 mg PO Q4-6H PRN #15 tablet 02/27/18 Dicyclomine [Bentyl] 20 mg PO QID PRN #15 capsule 05/17/19 Escitalopram Oxalate 20 mg PO DAILY #30 tablet 05/17/19 Ethinyl Estradiol/Drospirenone 1 each PO DAILY #1 packet 05/17/19 [Drospirenone-Ee 3-0.03 mg Tab] - Allergies Allergies/Adverse Reactions: Allergies Allergy/AdvReac Type Severity Reaction Status Date / Time Sulfa (Sulfonamide AdvReac Respiratory Verified 05/17/19 13:34 Antibiotics) - Social History Does the pt smoke?: Yes Smoking Status: Current every day smoker Does the pt drink ETOH?: Yes Does the pt have substance abuse?: Yes - Immunizations Immunizations are current?: Yes - POLST Patient has POLST: No PD ED PE NORMAL - Vitals Vital signs reviewed: Yes - General General: Alert and oriented X 3, No acute distress - HEENT HEENT: Pharynx benign - Abdomen Abdomen: Normal bowel sounds, Soft, Non tender - Derm Derm: No rash - Neuro Neuro: Alert and oriented X 3, Normal speech Results - Vitals Vitals: Vital Signs - 24 hr 05/17/19 13:34 Temperature 36.9 C Heart Rate 118 H Respiratory 20 Rate Blood Pressure 173/103 H O2 Saturation 100 Oxygen O2 Source Room air - Labs Labs: Laboratory Tests 05/17/19 05/17/19 05/17/19 13:46 14:32 15:14 WBC 8.1 RBC 5.15 Hgb 14.5 Hct 45.0 MCV 87.4 MCH 28.2 MCHC 32.2 RDW 12.9 Plt Count 228 MPV 10.3 Neut # (Auto) 4.9 Lymph # (Auto) 2.5 Ray # (Auto) 0.5 Eos # (Auto) 0.2 Baso # (Auto) 0.0 Absolute Nucleated RBC 0.00 Nucleated RBC % 0.0 Sodium 137 Potassium 3.8 Chloride 100 L Carbon Dioxide 24 Anion Gap 13.0 BUN 8 Creatinine 0.8 Estimated GFR (MDRD) 83 L Glucose 121 H Calcium 9.1 Total Bilirubin 0.4 AST 24 ALT 21 Alkaline Phosphatase 57 Total Protein 7.9 Albumin 4.6 Globulin 3.3 Albumin/Globulin Ratio 1.4 Lipase 33 Urine Color YELLOW Urine Clarity CLEAR Urine pH 8.0 H Ur Specific [place] 1.020 Urine Protein NEGATIVE Urine Glucose (UA) NEGATIVE Urine Ketones NEGATIVE Urine Occult Blood NEGATIVE Urine Nitrite NEGATIVE Urine Bilirubin NEGATIVE Urine Urobilinogen 0.2 (NORMAL) Ur Leukocyte Esterase NEGATIVE Ur Microscopic Review NOT INDICATED Urine Culture Comments NOT INDICATED Urine HCG, Qual NEGATIVE PD MEDICAL DECISION MAKING - ED course ED course: 33-year-old woman with an acute GI illness consistent with gastroenteritis. She is administered IV fluids, GI cocktail, Zofran, Bentyl, Imodium. On reexamination at 3:50 PM she was feeling well, all of her symptoms had improved. She passed a p.o. challenge and remained nontender. Departure - Departure Disposition: 01 Home, Self Care Clinical Impression: Gastroenteritis Condition: Good Record reviewed to determine appropriate education?: Yes Instructions: ED Gastroenteritis Viral Prescriptions: Dicyclomine [Bentyl] 20 mg PO QID PRN #15 capsule PRN Reason: Abdominal Pain Escitalopram Oxalate 20 mg PO DAILY #30 tablet Ethinyl Estradiol/Drospirenone [Drospirenone-Ee 3-0.03 mg Tab] 1 each PO DAILY #1 packet Comments: Return in 12 to 24 hours if not better, anytime for new or worsening symptoms, especially high fever.
[2019-05-17 14:49] LABS: ALBUMIN 4.6 g/dL (3.2-5.5); ALBUMIN/GLOBULIN RATIO 1.4 (1.0-2.2); BILIRUBIN,TOTAL 0.4 mg/dL (0.2-1.0); CALCIUM 9.1 mg/dL (8.5-10.3); CREATININE 0.8 mg/dL (0.4-1.0); TOTAL PROTEIN 7.9 g/dL (6.7-8.2)
[2019-05-17 15:18] LABS: BASOPHILS % (AUTO) 0.4 %; EOSINOPHILS # (AUTO) 0.2 10^3/uL (0.0-0.7); HGB - HEMOGLOBIN 14.5 g/dL (12.0-16.0); LYMPHOCYTES # (AUTO) 2.5 10^3/uL (1.5-3.5); LYMPHOCYTES % (AUTO) 30.4 %; MEAN CORPUSCULAR HEMOGLOBIN 28.2 pg (27.0-31.0); MEAN CORPUSCULAR HGB CONC 32.2 g/dL (32.0-36.0); MEAN CORPUSCULAR VOLUME 87.4 fL (81.0-99.0); MEAN PLATELET VOLUME 10.3 fL (7.9-10.8); MONOCYTES # (AUTO) 0.5 10^3/uL (0.0-1.0); NEUTROPHILS # (AUTO) 4.9 10^3/uL (1.5-6.6); NEUTROPHILS % (AUTO) 60.3 %; PLT - PLATELET COUNT 228 10^3/uL (130-450); RED BLOOD COUNT 5.15 10^6/uL (4.20-5.40); RED CELL DISTRIBUTION WIDTH 12.9 % (12.0-15.0); WHITE BLOOD COUNT 8.1 x10^3/uL (4.8-10.8)
[2019-05-17 16:04] VITALS: BP 157/96
== END 2019-05-17 16:08 | disposition home or self-care (01) ==
LOC: ED 13:29
DX: K52.9 Noninfective gastroenteritis and colitis, unspecified (principal); F17.200 Nicotine dependence, unspecified, uncomplicated
CPT/HCPCS: 36415; 80053; 81003; 81025; 83690; 85025; 96361; 96374; 99283; 99284; A9270; 81001; 87086

== ENCOUNTER 2020-10-07 13:09 | Emergency (ER) | payer MEDICAID ==
[2020-10-07 13:17] VITALS: BP 165/94
[2020-10-07] MEDS ORDERED: oxyCODONE 5 MG TABLET PO STA (13:32)
--- NOTE | 2020-10-07 13:36 | ED Physician Documentation ---
PD HPI HEENT - Stated complaint Stated Complaint: MOUTH PX - Chief complaint Chief Complaint: Heent - History obtained from History obtained from: Patient - Additional information Additional information: 34-year-old woman in pain management for chronic pain and on Suboxone had dental extraction yesterday and has severe pain and was diagnosed with dry socket by her dentist and referred here for pain medication. Review of Systems Constitutional: denies: Fever, Chills Ears: denies: Loss of hearing, Ear pain Nose: denies: Rhinorrhea / runny nose, Congestion Throat: denies: Sore throat Cardiac: denies: Chest pain / pressure, Palpitations PD PAST MEDICAL HISTORY - Past Medical History Cardiovascular: None Respiratory: Asthma Neuro: None Endocrine/Autoimmune: None GI: GERD, Ulcers C T TECH: Ovarian cysts, Other : None, Other HEENT: None Psych: Depression Musculoskeletal: None Derm: Other - Past Surgical History Past Surgical History: Yes General: Cholecystectomy HEENT: Tonsil/Adenoidectomy - Present Medications Home Medications: Ambulatory Orders Medication Instructions Recorded Confirmed Ondansetron Odt [Zofran Odt] 4 mg TL Q6H PRN #15 tablet 10/13/16 07/28/17 Promethazine [Phenergan] 25 - 50 mg PO Q6H PRN #15 tab 10/13/16 07/28/17 Sucralfate [Carafate] 1 gm PO QID #40 oral.susp 10/13/16 07/28/17 Oxycodone HCl/Acetaminophen 1 each PO Q6H PRN #15 tablet 10/12/17 [Percocet 5-325 mg Tablet] cephALEXin [Keflex] 500 mg PO TID #15 capsule 02/27/18 oxyCODONE [Roxicodone] 5 mg PO Q4-6H PRN #15 tablet 02/27/18 Dicyclomine [Bentyl] 20 mg PO QID PRN #15 capsule 05/17/19 Escitalopram Oxalate 20 mg PO DAILY #30 tablet 05/17/19 Ethinyl Estradiol/Drospirenone 1 each PO DAILY #1 packet 05/17/19 [Drospirenone-Ee 3-0.03 mg Tab] Oxycodone HCl/Acetaminophen 1 - 2 each PO Q6H PRN #14 tablet 10/07/20 [Percocet 5-325 mg Tablet] - Allergies Allergies/Adverse Reactions: Allergies Allergy/AdvReac Type Severity Reaction Status Date / Time Sulfa (Sulfonamide AdvReac Respiratory Verified 10/07/20 13:12 Antibiotics) - Social History Does the pt smoke?: Yes Smoking Status: Current every day smoker Does the pt drink ETOH?: Yes Does the pt have substance abuse?: Yes - Immunizations Immunizations are current?: Yes - POLST Patient has POLST: No PD ED PE NORMAL - Vitals Vital signs reviewed: Yes - General General: Alert and oriented X 3, No acute distress - HEENT HEENT: PERRL, EOMI, Other (The dental extraction site actually looks like it is healing well. 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 She is on Suboxone but has only been to the emergency department once in the last year and there is no evidence of doctor shopping. Departure - Departure Disposition: 01 Home, Self Care Clinical Impression: Dry socket Condition: Good Record reviewed to determine appropriate education?: Yes Instructions: ED Tooth Pain Prescriptions: Oxycodone HCl/Acetaminophen [Percocet 5-325 mg Tablet] 1 - 2 each PO Q6H PRN #14 tablet PRN Reason: pain Comments: Call your pain management physician tomorrow and let her know that you were here and got a prescription for Percocet. Return for new or worsening symptoms. I am prescribing a short course of narcotic pain medication for you. These are potentially dangerous and addictive medications that should be used carefully. These medications may constipate you. Take an uamt-fad-dkgkpyf stool softener (docusate) twice daily with plenty of water while taking these medications. If you go 24 hours without a bowel movement, take [id number]-[id number] miralax, per package instructions. Do not drink or drive while taking these medications. If you received narcotic or sedating medications while in the emergency depar tment, do not drive for 24 hours. Store this medication in a safe, secure place and out of reach of children. It is a violation of federal law to give or sell this medication to another person or to use in a manner other than prescribed. The ED will not refill narcotic prescriptions, including prescriptions lost or stolen. To dispose of unwanted medications: 1. [facility] at [address] in [place] has a medication drop box. They accept prescription medications (in pill form) Thursday through Thursday 9:00 a.m. to 5:00 p.m. 2. [facility] accepts prescription medications (in pill form only) for disposal year round. Call for more information. 3. Contact the [facility] for the next [facility] sponsored prescription drug collection event. , [phone], or [phone]; Note that many narcotic pain relievers also contain Tylenol/acetaminophen. Please ensure that your total dose of acetaminophen from all sources does not exceed 3 g (3000 mg) per day.
== END 2020-10-07 13:51 | disposition home or self-care (01) ==
LOC: ED 13:09
DX: M27.3 Alveolitis of jaws (principal); F17.200 Nicotine dependence, unspecified, uncomplicated
CPT/HCPCS: 99282; 99283

== ENCOUNTER 2020-12-14 17:02 | Emergency (ER) | payer MEDICAID ==
[2020-12-14 18:30] LABS: BASOPHILS % (AUTO) 0.3 %; EOSINOPHILS # (AUTO) 0.2 10^3/uL (0.0-0.7); EOSINOPHILS % (AUTO) 2.4 %; HCT - HEMATOCRIT 38.1 % (37.0-47.0); HGB - HEMOGLOBIN 12.7 g/dL (12.0-16.0); LYMPHOCYTES # (AUTO) 2.4 10^3/uL (1.5-3.5); LYMPHOCYTES % (AUTO) 30.9 %; MEAN CORPUSCULAR HEMOGLOBIN 28.2 pg (27.0-31.0); MEAN CORPUSCULAR HGB CONC 33.3 g/dL (32.0-36.0); MEAN CORPUSCULAR VOLUME 84.7 fL (81.0-99.0); MEAN PLATELET VOLUME 9.4 fL (7.9-10.8); MONOCYTES # (AUTO) 0.5 10^3/uL (0.0-1.0); MONOCYTES % (AUTO) 5.9 %; NEUTROPHILS # (AUTO) 4.7 10^3/uL (1.5-6.6); NEUTROPHILS % (AUTO) 60.1 %; PLT - PLATELET COUNT 199 10^3/uL (130-450); RED CELL DISTRIBUTION WIDTH 12.6 % (12.0-15.0); WHITE BLOOD COUNT 7.8 x10^3/uL (4.8-10.8)
[2020-12-14 18:42] LABS: ALBUMIN/GLOBULIN RATIO 1.4 (1.0-2.2); BILIRUBIN,TOTAL 0.6 mg/dL (0.2-1.0); CALCIUM 8.8 mg/dL (8.5-10.3); CREATININE 0.8 mg/dL (0.4-1.0); POTASSIUM 3.9 mmol/L (3.5-5.0); TOTAL PROTEIN 6.9 g/dL (6.7-8.2)
[2020-12-14 18:47] LABS: BILIRUBIN,URINE NEGATIVE (NEGATIVE); GLUCOSE, URINE (UA) NEGATIVE (NEGATIVE); KETONES,URINE (UA) NEGATIVE (NEGATIVE); LEUKOCYTE ESTERASE, URINE NEGATIVE (NEGATIVE); NITRITE,URINE NEGATIVE (NEGATIVE); OCCULT BLOOD,URINE NEGATIVE (NEGATIVE); PH,URINE 6.5 PH (5.0-7.5); PROTEIN,URINE NEGATIVE (NEGATIVE); UROBILINOGEN,URINE 0.2 (NORMAL) E.U./dL (NORMAL)
[2020-12-14 18:54] LABS: CLARITY,URINE CLEAR (CLEAR)
--- NOTE | 2020-12-14 19:55 | ED Physician Documentation ---
PD HPI ABD PAIN - Stated complaint Stated Complaint: POST OP PX/WARM TO TOUCH - Chief complaint Chief Complaint: Abd Pain - History obtained from History obtained from: Patient - Additional information Additional information: Had a cholecystectomy 4 years ago. Since then has intermittent epigastric and left upper quadrant pain with a feeling of swelling there. That said happened over the last few days and was worse yesterday. There is no associated nausea currently. Review of Systems Ten Systems: 10 systems reviewed and negative Constitutional: reports: Reviewed and negative Eyes: reports: Reviewed and negative Ears: reports: Reviewed and negative PD PAST MEDICAL HISTORY - Past Medical History Cardiovascular: None Respiratory: Asthma Neuro: None Endocrine/Autoimmune: None GI: GERD, Ulcers NATURALIST: Ovarian cysts, Other : None, Other HEENT: None Psych: Depression Musculoskeletal: None Derm: Other - Past Surgical History Past Surgical History: Yes General: Cholecystectomy HEENT: Tonsil/Adenoidectomy - Present Medications Home Medications: Ambulatory Orders Medication Instructions Recorded Confirmed Ondansetron Odt [Zofran Odt] 4 mg TL Q6H PRN #15 tablet 10/13/16 12/14/20 Promethazine [Phenergan] 25 - 50 mg PO Q6H PRN #15 tab 10/13/16 12/14/20 Sucralfate [Carafate] 1 gm PO QID #40 oral.susp 10/13/16 12/14/20 Oxycodone HCl/Acetaminophen 1 each PO Q6H PRN #15 tablet 10/12/17 12/14/20 [Percocet 5-325 mg Tablet] cephALEXin [Keflex] 500 mg PO TID #15 capsule 02/27/18 12/14/20 oxyCODONE [Roxicodone] 5 mg PO Q4-6H PRN #15 tablet 02/27/18 12/14/20 Dicyclomine [Bentyl] 20 mg PO QID PRN #15 capsule 05/17/19 12/14/20 Escitalopram Oxalate 20 mg PO DAILY #30 tablet 05/17/19 12/14/20 Ethinyl Estradiol/Drospirenone 1 each PO DAILY #1 packet 05/17/19 12/14/20 [Drospirenone-Ee 3-0.03 mg Tab] Oxycodone HCl/Acetaminophen 1 - 2 each PO Q6H PRN #14 tablet 10/07/20 12/14/20 [Percocet 5-325 mg Tablet] oxyCODONE [Roxicodone] 5 mg PO Q4-6H PRN #10 tablet 12/14/20 - Allergies Allergies/Adverse Reactions: Allergies Allergy/AdvReac Type Severity Reaction Status Date / Time Sulfa (Sulfonamide AdvReac Respiratory Verified 12/14/20 17:48 Antibiotics) - Social History Does the pt smoke?: Yes Smoking Status: Current every day smoker Does the pt drink ETOH?: Yes Does the pt have substance abuse?: Yes - Immunizations Immunizations are current?: Yes - POLST Patient has POLST: No PD ED PE NORMAL - Vitals Vital signs reviewed: Yes - General General: Alert and oriented X 3, No acute distress - Abdomen Abdomen: Normal bowel sounds, Soft, No organomegaly, Other (Suggestion of potentially a ventral hernia which is nontender. Otherwise abdominal examination is normal without signs of warmth, redness, masses. Or tenderness.) - Neuro Neuro: Alert and oriented X 3, Normal speech Results - Vitals Vitals: Vital Signs - 24 hr 12/14/20 17:43 Temperature 37.1 C Heart Rate 100 Respiratory 20 Rate Blood Pressure 176/98 H O2 Saturation 100 Oxygen O2 Source Room air - Labs Labs: Laboratory Tests 12/14/20 12/14/20 12/14/20 17:59 18:25 18:25 WBC 7.8 RBC 4.50 Hgb 12.7 Hct 38.1 MCV 84.7 MCH 28.2 MCHC 33.3 RDW 12.6 Plt Count 199 MPV 9.4 Neut # (Auto) 4.7 Lymph # (Auto) 2.4 [place] # (Auto) 0.5 Eos # (Auto) 0.2 Baso # (Auto) 0.0 Absolute Nucleated RBC 0.00 Nucleated RBC % 0.0 Sodium 135 Potassium 3.9 Chloride 100 L Carbon Dioxide 25 Anion Gap 10.0 BUN 10 Creatinine 0.8 Estimated GFR (MDRD) 82 L Glucose 106 H Calcium 8.8 Total Bilirubin 0.6 AST 17 ALT 18 Alkaline Phosphatase 56 Total Protein 6.9 Albumin 4.0 Globulin 2.9 Albumin/Globulin Ratio 1.4 Lipase 24 Urine Color YELLOW Urine Clarity CLEAR Urine pH 6.5 Ur Specific [place] 1.020 Urine Protein NEGATIVE Urine Glucose (UA) NEGATIVE Urine Ketones NEGATIVE Urine Occult Blood NEGATIVE Urine Nitrite NEGATIVE Urine Bilirubin NEGATIVE Urine Urobilinogen 0.2 (NORMAL) Ur Leukocyte Esterase NEGATIVE Ur Microscopic Review NOT INDICATED Urine Culture Comments NOT INDICATED PD MEDICAL DECISION MAKING - ED course ED course: 35-year-old woman with pain from what I think is either a ventral hernia or diastases recti. Benign exam otherwise. Discussed the conservative nature of this. Objective findings are benign. I am prescribing a short course of short-acting opioid pain medication for this patient. I have reviewed the patients SURGERY AID and no concerning findings were noted. I have discussed that the opioids are for short term therapy only, and will not be refilled from the ED. Departure - Departure Disposition: Home, Self Care Clinical Impression: Abdominal pain Qualifiers: Abdominal location: epigastric Qualified Code(s): R10.13 - Epigastric pain Condition: Good Record reviewed to determine appropriate education?: Yes Instructions: ED Abdominal Pain Unkn Cause Prescriptions: oxyCODONE [Roxicodone] 5 mg PO Q4-6H PRN #10 tablet PRN Reason: Pain Comments: As discussed your lab work looks perfectly normal. I suspect you have what is called diastases recti. This may respond to core strengthening exercises which you can look up online or talk with your doctor about specific physical therapy for this. Return if worsening. I am prescribing a short course of narcotic pain medication for you. These are potentially dangerous and addictive medications that should be used carefully. These medications may constipate you. Take an oyhi-lws-awifjuk stool softener (docusate) twice daily with plenty of water while taking these medications. If you go 24 hours without a bowel movement, take clzh-dwi-sflpzrl miralax, per package instructions. Do not drink or drive while taking these medications. If you received narcotic or sedating medications while in the emergency department, do not drive for 24 hours. Store this medication in a safe, secure place and out of reach of children. It is a violation of federal law to give or sell this medication to another person or to use in a manner other than prescribed. The ED will not refill narcotic prescriptions, including prescriptions lost or stolen. To dispose of unwanted medications: 1. [facility] at [address] in [place] has a medication drop box. They accept prescription medications (in pill form) Thursday through Thursday 9:00 a.m. to 5:00 p.m. 2. The [facility] accepts prescription medications (in pill form only) for disposal year round. Call for more information. 3. Contact the [facility] for the next [facility] sponsored prescription drug collection event. , [phone], or [phone]; Note that many narcotic pain relievers also contain Tylenol/acetaminophen. Please ensure that your total dose of acetaminophen from all sources does not exceed 3 g (3000 mg) per day.
[2020-12-14] MEDS ORDERED: oxyCODONE 5 MG TABLET PO STA (20:00)
[2020-12-14 20:09] VITALS: BP 146/98
== END 2020-12-14 20:15 | disposition home or self-care (01) ==
LOC: ED 17:02
DX: R10.13 Epigastric pain (principal); F17.200 Nicotine dependence, unspecified, uncomplicated
CPT/HCPCS: 36415; 80053; 81003; 83690; 85025; 99283; A9270; 81001; 87086

== ENCOUNTER 2020-12-14 21:14 | Emergency (ER) | payer MEDICAID ==
[2020-12-14 21:24] VITALS: BP 171/90
[2020-12-14] MEDS ORDERED: oxyCODONE/ACET 5/325 Prepack 4 PO STA (21:45)
--- NOTE | 2020-12-14 21:45 | ED Physician Documentation ---
History of Present Illness - Stated complaint Stated Complaint: MED REFILL - Chief complaint Chief Complaint: General - History obtained from History obtained from: Patient - Additonal information Additional information: Seen earlier by me for abdominal pain. She tried to go to the pharmacy and the pharmacy will not fill the prescription. No new complaints since last visit. 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, Other : None, Other HEENT: None Psych: Depression Musculoskeletal: None Derm: Other - Past Surgical History Past Surgical History: Yes General: Cholecystectomy HEENT: Tonsil/Adenoidectomy - Present Medications Home Medications: Ambulatory Orders Medication Instructions Recorded Confirmed Ondansetron Odt [Zofran Odt] 4 mg TL Q6H PRN #15 tablet 10/13/16 12/14/20 Promethazine [Phenergan] 25 - 50 mg PO Q6H PRN #15 tab 10/13/16 12/14/20 Sucralfate [Carafate] 1 gm PO QID #40 oral.susp 10/13/16 12/14/20 Oxycodone HCl/Acetaminophen 1 each PO Q6H PRN #15 tablet 10/12/17 12/14/20 [Percocet 5-325 mg Tablet] cephALEXin [Keflex] 500 mg PO TID #15 capsule 02/27/18 12/14/20 oxyCODONE [Roxicodone] 5 mg PO Q4-6H PRN #15 tablet 02/27/18 12/14/20 Dicyclomine [Bentyl] 20 mg PO QID PRN #15 capsule 05/17/19 12/14/20 Escitalopram Oxalate 20 mg PO DAILY #30 tablet 05/17/19 12/14/20 Ethinyl Estradiol/Drospirenone 1 each PO DAILY #1 packet 05/17/19 12/14/20 [Drospirenone-Ee 3-0.03 mg Tab] Oxycodone HCl/Acetaminophen 1 - 2 each PO Q6H PRN #14 tablet 10/07/20 12/14/20 [Percocet 5-325 mg Tablet] oxyCODONE [Roxicodone] 5 mg PO Q4-6H PRN #10 tablet 12/14/20 - Allergies Allergies/Adverse Reactions: Allergies Allergy/AdvReac Type Severity Reaction Status Date / Time Sulfa (Sulfonamide AdvReac Respiratory Verified 12/14/20 21:24 Antibiotics) - Social History Does the pt smoke?: Yes Smoking Status: Current every day smoker Does the pt drink ETOH?: Yes Does the pt have substance abuse?: Yes - Immunizations Immunizations are current?: Yes - POLST Patient has POLST: No PD ED PE NORMAL - Vitals Vital signs reviewed: Yes - General General: Alert and oriented X 3, No acute distress - Abdomen Abdomen: Normal bowel sounds, Soft, Non tender - Neuro Neuro: Alert and oriented X 3, Normal speech Results - Vitals Vitals: Vital Signs - 24 hr 12/14/20 21:20 Temperature 36.9 C Heart Rate 81 Respiratory 16 Rate Blood Pressure 171/90 H O2 Saturation 100 Oxygen O2 Source Room air PD MEDICAL DECISION MAKING - ED course ED course: She was given a prepack. Discussed with her that further pain meds would need to come from her pain management physician. For Percocet given to go. Departure - Departure Disposition: Home, Self Care Clinical Impression: Medication refill Condition: Good Record reviewed to determine appropriate education?: Yes Instructions: ED Abdominal Pain Unkn Cause Comments: Follow-up with your pain management physician, discuss on Thursday. Return for new or worsening symptoms.
== END 2020-12-14 21:55 | disposition home or self-care (01) ==
LOC: ED 21:14
DX: R10.13 Epigastric pain (principal); F17.200 Nicotine dependence, unspecified, uncomplicated
CPT/HCPCS: 99281; 99283

== ENCOUNTER 2020-12-25 14:13 | Emergency (ER) | payer MEDICAID ==
[2020-12-25 14:32] LABS: BILIRUBIN,URINE NEGATIVE (NEGATIVE); GLUCOSE, URINE (UA) NEGATIVE (NEGATIVE); KETONES,URINE (UA) NEGATIVE (NEGATIVE); LEUKOCYTE ESTERASE, URINE NEGATIVE (NEGATIVE); NITRITE,URINE NEGATIVE (NEGATIVE); OCCULT BLOOD,URINE NEGATIVE (NEGATIVE); PROTEIN,URINE NEGATIVE (NEGATIVE); UROBILINOGEN,URINE 0.2 (NORMAL) E.U./dL (NORMAL)
[2020-12-25 14:35] LABS: CLARITY,URINE CLEAR (CLEAR); HCG UR QUAL NEGATIVE
[2020-12-25 15:10] LABS: BASOPHILS % (AUTO) 0.2 %; EOSINOPHILS # (AUTO) 0.2 10^3/uL (0.0-0.7); EOSINOPHILS % (AUTO) 2.3 %; HCT - HEMATOCRIT 42.5 % (37.0-47.0); HGB - HEMOGLOBIN 14.1 g/dL (12.0-16.0); LYMPHOCYTES # (AUTO) 2.9 10^3/uL (1.5-3.5); LYMPHOCYTES % (AUTO) 34.3 %; MEAN CORPUSCULAR HEMOGLOBIN 28.1 pg (27.0-31.0); MEAN CORPUSCULAR HGB CONC 33.2 g/dL (32.0-36.0); MEAN CORPUSCULAR VOLUME 84.7 fL (81.0-99.0); MEAN PLATELET VOLUME 9.9 fL (7.9-10.8); MONOCYTES # (AUTO) 0.4 10^3/uL (0.0-1.0); MONOCYTES % (AUTO) 4.9 %; NEUTROPHILS # (AUTO) 4.9 10^3/uL (1.5-6.6); NEUTROPHILS % (AUTO) 58.1 %; PLT - PLATELET COUNT 218 10^3/uL (130-450); RED BLOOD COUNT 5.02 10^6/uL (4.20-5.40); RED CELL DISTRIBUTION WIDTH 12.8 % (12.0-15.0); WHITE BLOOD COUNT 8.4 x10^3/uL (4.8-10.8)
[2020-12-25 15:33] LABS: ALBUMIN 4.1 g/dL (3.2-5.5); ALBUMIN/GLOBULIN RATIO 1.2 (1.0-2.2); BILIRUBIN,TOTAL 0.5 mg/dL (0.2-1.0); CALCIUM 9.6 mg/dL (8.5-10.3); CREATININE 0.9 mg/dL (0.4-1.0); POTASSIUM 4.4 mmol/L (3.5-5.0); TOTAL PROTEIN 7.4 g/dL (6.7-8.2)
[2020-12-25 16:02] LABS: MUDS CUTOFF CONCENTRATIONS CUTOFF CONC BELOW:
[2020-12-25] MEDS ORDERED: SODIUM CHLORIDE 0.9% 1,000 ML IV STA (16:08)
[2020-12-25] MEDS ORDERED: DROPERIDOL 5 MG/2 ML VIAL IVP STA (16:08)
[2020-12-25] MEDS ORDERED: PANTOPRAZOLE 40 MG VIAL IVP STA (16:08)
--- NOTE | 2020-12-25 16:12 | ED Physician Documentation ---
History of Present Illness - Stated complaint Stated Complaint: ABD PX/VOMITING - Chief complaint Chief Complaint: Abd Pain - History obtained from History obtained from: Patient - History of Present Illness Timing: Chronic Pain level max: 9 Pain level now: 9 - Additonal information Additional information: Patient is a 35-year-old female who has a longstanding history of abdominal pain and vomiting. States increasing pain today. States is mainly in the epigastric area, radiates to the bilateral flanks. Nothing makes it worse. Has had nausea and vomiting as well. She does use marijuana daily. She states that a heating pad and warm showers help. Denies any possibility of . Has had a cholecystectomy in the past. She is awaiting referral for endoscopy. 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: Ovarian cysts, Other : None, Other HEENT: None Psych: Depression Musculoskeletal: None Derm: Other Other Past Medical History: PCOS - Past Surgical History Past Surgical History: Yes General: Cholecystectomy HEENT: Tonsil/Adenoidectomy - Present Medications Home Medications: Ambulatory Orders Medication Instructions Recorded Confirmed Ondansetron Odt [Zofran Odt] 4 mg TL Q6H PRN #15 tablet 10/13/16 12/25/20 Promethazine [Phenergan] 25 - 50 mg PO Q6H PRN #15 tab 10/13/16 12/25/20 Escitalopram Oxalate 20 mg PO DAILY #30 tablet 05/17/19 12/25/20 Ethinyl Estradiol/Drospirenone 1 each PO DAILY #1 packet 05/17/19 12/25/20 [Drospirenone-Ee 3-0.03 mg Tab] Buprenorphine HCl/Naloxone HCl 3 strip SL DAILY 12/25/20 12/25/20 [Suboxone 8 mg-2 mg Sl Film] cloNIDine [Catapres] 0.1 mg PO BID 12/25/20 12/25/20 clonazePAM [Clonazepam] 1 mg PO BID 12/25/20 12/25/20 - Allergies Allergies/Adverse Reactions: Allergies Allergy/AdvReac Type Severity Reaction Status Date / Time Sulfa (Sulfonamide AdvReac Respiratory Verified 12/25/20 14:15 Antibiotics) - Social History Does the pt smoke?: Yes Smoking Status: Current every day smoker Does the pt drink ETOH?: Yes Does the pt have substance abuse?: Yes - Immunizations Immunizations are current?: Yes - POLST Patient has POLST: No PD ED PE NORMAL - Vitals Vital signs reviewed: Yes - General General: Alert and oriented X 3, No acute distress, Well developed/nourished - HEENT HEENT: PERRL, Moist mucous membranes - Neck Neck: Supple, no meningeal sign - Cardiac Cardiac: RRR, Strong equal pulses - Respiratory Respiratory: No respiratory distress, Clear bilaterally - Abdomen Abdomen: Normal bowel sounds, Soft, Non distended, Other (Tender to palpation epigastric. No peritoneal signs.) - Back Back: No CVA TTP, No spinal TTP - Derm Derm: Warm and dry - Extremities Extremities: No edema - Neuro Neuro: Alert and oriented X 3 - Psych Psych: Normal mood, Normal affect Results - Vitals Vitals: Vital Signs - 24 hr 12/25/20 12/25/20 12/25/20 14:16 15:50 16:51 Temperature 36.7 C 37.2 C Heart Rate 100 88 82 Respiratory 16 20 18 Rate Blood Pressure 150/100 H 144/128 H 140/99 H O2 Saturation 100 100 98 Oxygen O2 Source Room air - Labs Labs: Laboratory Tests 12/25/20 12/25/20 12/25/20 14:24 14:27 15:06 WBC 8.4 RBC 5.02 Hgb 14.1 Hct 42.5 MCV 84.7 MCH 28.1 MCHC 33.2 RDW 12.8 Plt Count 218 MPV 9.9 Neut # (Auto) 4.9 Lymph # (Auto) 2.9 [place] # (Auto) 0.4 Eos # (Auto) 0.2 Baso # (Auto) 0.0 Absolute Nucleated RBC 0.00 Nucleated RBC % 0.0 Sodium Potassium Chloride Carbon Dioxide Anion Gap BUN Creatinine Estimated GFR (MDRD) Glucose Calcium Total Bilirubin AST ALT Alkaline Phosphatase Total Protein Albumin Globulin Albumin/Globulin Ratio Lipase Urine Color LT. YELLOW Urine Clarity CLEAR Urine pH 7.0 Ur Specific [place] 1.015 Urine Protein NEGATIVE Urine Glucose (UA) NEGATIVE Urine Ketones NEGATIVE Urine Occult Blood NEGATIVE Urine Nitrite NEGATIVE Urine Bilirubin NEGATIVE Urine Urobilinogen 0.2 (NORMAL) Ur Leukocyte Esterase NEGATIVE Ur Microscopic Review NOT INDICATED Urine Culture Comments NOT INDICATED Urine HCG, Qual NEGATIVE Urine Opiates Screen NEGATIVE Ur Oxycodone Screen NEGATIVE Urine Methadone Screen NEGATIVE Ur Propoxyphene Screen NEGATIVE Ur Barbiturates Screen NEGATIVE Ur Tricyclics Screen NEGATIVE Ur Phencyclidine Scrn NEGATIVE Ur Amphetamine Screen NEGATIVE U Methamphetamines Scrn NEGATIVE U Benzodiazepines Scrn NEGATIVE Urine Cocaine Screen NEGATIVE U Cannabinoids Screen POSITIVE H 12/25/20 15:06 WBC RBC Hgb Hct MCV MCH MCHC RDW Plt Count MPV Neut # (Auto) Lymph # (Auto) [place] # (Auto) Eos # (Auto) Baso # (Auto) Absolute Nucleated RBC Nucleated RBC % Sodium 138 Potassium 4.4 Chloride 102 Carbon Dioxide 24 Anion Gap 12.0 BUN 12 Creatinine 0.9 Estimated GFR (MDRD) 71 L Glucose 97 Calcium 9.6 Total Bilirubin 0.5 AST 17 ALT 16 Alkaline Phosphatase 60 Total Protein 7.4 Albumin 4.1 Globulin 3.3 Albumin/Globulin Ratio 1.2 Lipase 25 Urine Color Urine Clarity Urine pH Ur Specific [place] Urine Protein Urine Glucose (UA) Urine Ketones Urine Occult Blood Urine Nitrite Urine Bilirubin Urine Urobilinogen Ur Leukocyte Esterase Ur Microscopic Review Urine Culture Comments Urine HCG, Qual Urine Opiates Screen Ur Oxycodone Screen Urine Methadone Screen Ur Propoxyphene Screen Ur Barbiturates Screen Ur Tricyclics Screen Ur Phencyclidine Scrn Ur Amphetamine Screen U Methamphetamines Scrn U Benzodiazepines Scrn Urine Cocaine Screen U Cannabinoids Screen PD MEDICAL DECISION MAKING - ED course Complexity details: reviewed results, re-evaluated patient, considered differential, d/w patient ED course: After arrival in the emergency department, the patient states that she has to leave emergently to go take care of her daughter. She was given a dose of droperidol and Toradol. Patient was informed that she is welcome to return anytime should her symptoms worsen or should she like further evaluation. Patient counseled regarding signs and symptoms for which I believe and urgent re-evaluation would be necessary. Patient with good understanding of and agre ement to plan and is comfortable going home at this time This document was made in part using voice recognition software. While efforts are made to proofread this document, sound alike and grammatical errors may occur. Departure - Departure Disposition: 01 Home, Self Care Clinical Impression: Abdominal pain Condition: Good Instructions: ED Abdominal Pain Unkn Cause Follow-Up: ROBERTO POTTER ARNP [Primary Care Provider] - Within 1 week Comments: The cause of your symptoms is unclear today. If you need to return after taking care of your daughter, we are happy to re-evaluate you. Discharge Date/Time: 12/25/20 17:15
[2020-12-25 16:16] LABS: AMPHETAMINE SCREEN,URINE NEGATIVE (NEGATIVE); BARBITURATE SCREEN,UR NEGATIVE (NEGATIVE); BENZODIAZEPINES SCREEN, URINE NEGATIVE (NEGATIVE); COCAINE SCREEN URINE NEGATIVE (NEGATIVE); METHADONE SCREEN, URINE NEGATIVE (NEGATIVE); METHAMPHETAMINES SCREEN, URINE NEGATIVE (NEGATIVE); OPIATE SCREEN, URINE NEGATIVE (NEGATIVE); OXYCODONE SCREEN, URINE NEGATIVE (NEGATIVE); PROPOXYPHENE SCREEN, URINE NEGATIVE (NEGATIVE); THC CANNABINOID SCREEN, URINE POSITIVE (NEGATIVE); TRICYCLIC ANTIDEPRESSANT,URINE NEGATIVE (NEGATIVE)
[2020-12-25] MEDS ORDERED: KETOROLAC 30 MG/ML VIAL IVP STA (16:39)
[2020-12-25 16:52] VITALS: BP 140/99
== END 2020-12-25 17:15 | disposition home or self-care (01) ==
LOC: ED 14:13
DX: R10.13 Epigastric pain (principal); G89.29 Other chronic pain; Z79.891 Long term (current) use of opiate analgesic; F17.200 Nicotine dependence, unspecified, uncomplicated
CPT/HCPCS: 36415; 80053; 80306; 81001; 81003; 81025; 83690; 85025; 87086; 96374; 96375; 99284

== ENCOUNTER 2021-02-18 16:09 | Outpatient (CLI) | payer MEDICAID | END 2021-02-18 16:10 | disposition home or self-care (01) | LOC: COV 16:09 | PROVIDERS: ATTEND Family Medicine | DX: U07.1 COVID-19 (principal) ==

== ENCOUNTER 2023-02-19 13:48 | Emergency (ER) | payer MEDICAID ==
[2023-02-19 14:15] VITALS: BP 152/94; O2SAT 99
[2023-02-19 14:36] LABS: RAPID STREP SCREEN Negative (Negative)
--- NOTE | 2023-02-19 14:48 | ED Physician Documentation ---
History of Present Illness - Stated complaint Stated Complaint: SORE THROAT - Chief complaint Chief Complaint: Heent - History obtained from History obtained from: Patient - History of Present Illness Timing: How many days ago (2) Pain level max: 3 Pain level now: 3 - Additonal information Additional information: 37-year-old female complains of a sore throat ongoing for the past 2 days. Daughter sick with same. No fevers, cough, congestion, rhinorrhea, nausea, vomiting or diarrhea. No abdominal pain. Worse with eating and drinking, nothing makes it better. She also complains of a burn to the left upper arm from a baking sheet. She states that there was a blister, but the blister popped and now is red. 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, Other : None, Other HEENT: None Psych: Depression Musculoskeletal: None Derm: Other - Past Surgical History Past Surgical History: Yes General: Cholecystectomy HEENT: Tonsil/Adenoidectomy - Present Medications Home Medications: Ambulatory Orders Medication Instructions Recorded Confirmed Ondansetron Odt [Zofran Odt] 4 mg TL Q6H PRN #15 tablet 10/13/16 12/25/20 Promethazine [Phenergan] 25 - 50 mg PO Q6H PRN #15 tab 10/13/16 12/25/20 Escitalopram Oxalate 20 mg PO DAILY #30 tablet 05/17/19 12/25/20 Ethinyl Estradiol/Drospirenone 1 each PO DAILY #1 packet 05/17/19 12/25/20 [Drospirenone-Ee 3-0.03 mg Tab] Buprenorphine HCl/Naloxone HCl 3 strip SL DAILY 12/25/20 12/25/20 [Suboxone 8 mg-2 mg Sl Film] cloNIDine [Catapres] 0.1 mg PO BID 12/25/20 12/25/20 clonazePAM [Clonazepam] 1 mg PO BID 12/25/20 12/25/20 Bacitracin Zinc Oint 1 applic TOP BID #1 each 10/05/23 - Allergies Allergies/Adverse Reactions: Allergies Allergy/AdvReac Type Severity Reaction Status Date / Time Sulfa (Sulfonamide AdvReac Respiratory Verified 02/19/23 14:06 Antibiotics) - Social History Does the pt smoke?: Yes Smoking Status: Current every day smoker Does the pt drink ETOH?: Yes Does the pt have substance abuse?: Yes - Immunizations Immunizations are current?: Yes - POLST Patient has POLST: No PD ED PE NORMAL - Vitals Vital signs reviewed: Yes - General General: Alert and oriented X 3, No acute distress - HEENT HEENT: PERRL, Ears normal, Moist mucous membranes, Pharynx benign - Neck Neck: Supple, no meningeal sign, No adenopathy - Cardiac Cardiac: RRR, Strong equal pulses - Respiratory Respiratory: No respiratory distress, Clear bilaterally - Abdomen Abdomen: Soft, Non tender, Non distended - Derm Derm: Warm and dry, No rash - Extremities Extremities: Other (L arm - 5x1cm linear burn anterior, distal upper arm, does not involve the joint. not circumferential. NVI. No signs of infection.) - Neuro Neuro: Alert and oriented X 3 Results - Vitals Vitals: Vital Signs - 24 hr 02/19/23 14:00 Temperature 36.1 C L Heart Rate 81 Respiratory 20 Rate Blood Pressure 152/94 H O2 Saturation 99 Oxygen O2 Source Room air - Labs Labs: Laboratory Tests 02/19/23 14:01 Group A Strep Rapid Negative PD Medical Decision Making - ED course Complexity details: reviewed results, considered differential, d/w patient ED course: Patient is well-appearing, nontoxic. Afebrile. Has a small burn to the left upper arm. No signs of infection. We will treat with bacitracin. Not circumferential. Rapid strep is negative. We will continue supportive care and have her follow-up with her PCP for further care. Td UTD Patient counseled regarding signs and symptoms for which I believe and urgent re-evaluation would be necessary. Patient with good understanding of and agreement to plan and is comfortable going home at this time This document was made in part using voice recognition software. While efforts are made to proofread this document, sound alike and grammatical errors may occur. Departure - Departure Disposition: 01 Home, Self Care Clinical Impression: Viral pharyngitis, Thermal burn Condition: Good Instructions: ED Pharyngitis Viral Report Pending, ED Burn D 2nd Follow-Up: your,doctor in 1 week for wound check [Other] Prescriptions: Bacitracin Zinc Oint 1 applic TOP BID #1 each Comments: Your rapid strep is negative today. A throat culture was sent and if this is positive we will call you and prescribe an antibiotic at that time. Your prescription was sent to [facility] in [place]. Please follow-up with your doctor for further care. Please return if you worsen. Forms: PCP List Discharge Date/Time: 02/19/23 15:12
== END 2023-02-19 15:12 | disposition home or self-care (01) ==
LOC: ED 13:48
DX: T22.032A Burn of unspecified degree of left upper arm, initial encounter (principal); X19.XXXA Contact with other heat and hot substances, initial encounter; J02.8 Acute pharyngitis due to other specified organisms; F17.200 Nicotine dependence, unspecified, uncomplicated
CPT/HCPCS: 87070; 87430; 99283